=== PATIENT | female | born 1930 | race Caucasian/White ===

== ENCOUNTER 2019-04-24 19:37 | Emergency (ER) | payer MEDICARE, MEDICAID ==
[~2019-04-24] VITALS: Ht 160 cm; Wt 70.3 kg
[~2019-04-24 19:37] MED LIST: ADULT LOW DOSE81 MG PO; ASPIRIN325 PO; BENAZEPRIL HCL10 MG PO; CARDIZEM30 MG PO; COUMADIN 5 MG TA5 M1 PO; ELIQUIS5 MG; ENOXAPARIN100 MG/11 SUBQ; KLOR-CON 1010 MEQ; KLOR-CON 1010 MEQ PO; LASIX 20 MG TAB20 MG; LASIX 20 MG TAB20 MG PO; PAXIL10 MG; ULTRAM 50MG TAB50 MG; VICODIN 5-3001 EACH PO
[2019-04-24] MEDS ORDERED: FOSAMAX 70 MG T70 MG (19:53)
[2019-04-24] MEDS ORDERED: KEFLEX500 M1 PO (21:20)
[2019-04-24 21:51] VITALS: BP 122/70
== END 2019-04-24 21:51 | disposition home or self-care (01) ==
LOC: M.ERS 19:37
DX: S40.862A Insect bite (nonvenomous) of left upper arm, initial encounter (principal); I11.0 Hypertensive heart disease with heart failure; I50.9 Heart failure, unspecified; Z90.710 Acquired absence of both cervix and uterus; Z90.49 Acquired absence of other specified parts of digestive tract; Z91.041 Radiographic dye allergy status; W57.XXXA Bitten or stung by nonvenomous insect and other nonvenomous arthropods, initial encounter; Y93.89 Activity, other specified; Y92.89 Other specified places as the place of occurrence of the external cause; Y99.8 Other external cause status

== ENCOUNTER 2019-07-24 16:56 | Inpatient (IN) | payer MEDICARE, MEDICAID ==
[~2019-07-24] VITALS: Ht 162.6 cm; Wt 72.8 kg
[~2019-07-24 16:56] MED LIST changes: -ELIQUIS5 MG; +ELIQUIS5 MG PO; +FOSAMAX 70 MG T70 MG PO; +KEFLEX500 M1 PO; -KLOR-CON 1010 MEQ; -LASIX 20 MG TAB20 MG
[2019-07-24 16:57] VITALS: BP 86/54
[2019-07-24 17:22] LABS: ABSOLUTE BASOPHILS 0.1 thou/uL (0.0-0.2); ABSOLUTE EOSINOPHILS 0.1 thou/uL (0.0-0.7); ABSOLUTE NEUTROPHILS 9.5 thou/uL (1.6-8.1); BASOPHILS 0.7 %; EOSINOPHILS 0.5 %; HEMATOCRIT 41.6 % (37.0-47.0); HEMOGLOBIN 13.4 gm/dL (12.0-15.0); LYMPHOCYTES 21.8 %; MCH 29.2 pg (26.0-34.0); MCHC 32.3 g/dL (28.0-37.0); MCV 90.6 fL (80.0-100.0); MONOCYTES 7.1 %; MPV 8.6 fl. (7.2-11.1); NUCLEATED RBCS 0 /100WBC; PLATELET COUNT* 294 thou/uL (150-400); POLYS 69.9 %; RBC 4.59 mil/uL (4.20-5.00); RDW-CV 15.1 % (10.5-14.5); WBC 13.6 thou/uL (4.0-11.0)
[2019-07-24 17:35] LABS: ANION GAP 11 mmol/L (7-16); BUN 28 mg/dL (7-18); CALCIUM 9.3 mg/dL (8.5-10.1); CHLORIDE 103 mmol/L (98-107); CO2 25 mmol/L (21-32); CREATININE 1.1 mg/dL (0.6-1.3); GLUCOSE 100 mg/dL (70-99); POTASSIUM 3.5 mmol/L (3.5-5.1); SODIUM 139 mmol/L (136-145)
[2019-07-24 17:37] LABS: INR 1.1; PROTIME 11.4 Seconds (9.20-11.50)
[2019-07-24 17:52] LABS: ALBUMIN 3.4 g/dL (3.4-5.0); ALKALINE PHOSPHATASE 157 U/L (46-116); LIPASE 181 U/L (73-393); NT-PRO BRAIN NAT PEPTIDE 2343 pg/mL (<300); SGOT 26 U/L (15-37); SGPT 20 U/L (30-65); TOTAL BILIRUBIN 0.5 mg/dL (<0.1-1.0); TOTAL PROTEIN 7.3 g/dL (6.4-8.2); TROPONIN-I LEVEL <0.06 ng/mL (<0.06)
[2019-07-24 19:05] VITALS: BP 95/60
[2019-07-24 19:25] VITALS: BP 112/71
[2019-07-25] VITALS (8 sets, daily range): BP systolic 77–146; BP diastolic 47–100
--- NOTE | 2019-07-25 12:12 | 2DMMODE ---
[place] [address] 2 D/M-MODE ECHOCARDIOGRAM Name: ALMA TERRY Room: [address] IN [facility]#: [id number] Admission: 07/24/19 Attend Phys: Roberto Tuttle Discharge: Date of : 34 Date of Service: 07/25/19 1212 Report #: [id number] THIS REPORT FOR: //name// APPROVED REPORT Study performed: 07/25/2019 10:38:50 EXAM: Comprehensive 2D, Doppler, and color-flow Echocardiogram Patient Location: In-Patient Room #: 202 Status: routine BSA: 1.73 HR: 72 bpm BP: 126/73 mmHg Rhythm: Atrial Fibrillation Other Information Study Quality: Good Indications Atrial Fibrillation Dyspnea Near syncope 2D Dimensions IVSd: 10.77 (7-11mm) LVOT Diam: 20.79 (18-24mm) LVDd: 42.53 mm PWd: 10.89 (7-11mm) Ascending Ao: 30.95 (22-36mm) LVDs: 29.00 (25-40mm) Aortic Root: 30.66 mm Volumes Left Atrial Volume (Systole) LA ESV Index: 47.00 mL/m2 Aortic Valve AoV Peak Dae.: 1.31 m/s AO Peak Gr.: 6.84 mmHg LVOT Max P.18 mmHg AO Mean Gr.: 3.87 mmHg LVOT Mean P.47 mmHg LVOT Max V: 0.89 m/s AO V2 VTI: 26.43 cm LVOT Mean V: 0.55 m/s DALIA (VTI): 2.22 cm2 LVOT V1 VTI: 17.30 cm Mitral Valve MV Decel. Time: 157.96 [place] [address] 2 D/M-MODE ECHOCARDIOGRAM Name: ALMA TERRY Room: [address]#: [id number] Admission: 07/24/19 Attend Phys: Roberto Tuttle Discharge: Date of : 34 Date of Service: 07/25/19 1212 Report #: [id number] MV PHT: 45.81 ms MVA (PHT): 4.80 cm2 TDI Medial E' Dae.: 0.09 m/s Lateral E' Dae.: 0.14 m/s Pulmonary Valve PV Peak Dae.: 0.98 m/s PV Peak Gr.: 3.85 mmHg Tricuspid Valve RAP Estimate: 5.00 mmHg TR Peak Gr.: 44.86 mmHg RVSP: 49.00 mmHg PA Pressure: 49.00 mmHg Left Ventricle The left ventricle is normal size. There is normal LV segmental wall motion. There is normal left ventricular wall thickness. Left ventricular systolic function is normal. LVEF is 60-65%. This study is not technically sufficient to allow evaluation of the LV diastolic function due to atrial fibrillation. Right Ventricle The right ventricle is normal size. The right ventricular systolic function is normal. Atria Left atrium is severely dilated. Right atrium is severely dilated. Aortic Valve Aortic valve leaflets are moderately thickened. No aortic regurgitation is present. There is no aortic valvular stenosis. Mitral Valve The mitral valve is normal in structure. Trace mitral regurgitation. No evidence of mitral valve stenosis. Tricuspid Valve The tricuspid valve is normal in structure. Mild tricuspid regurgitation. Moderate pulmonary hypertension. The RVSP is 50-55 mmHg. Pulmonic Valve The pulmonary valve is normal in [place] [address] 2 D/M-MODE ECHOCARDIOGRAM Name: ALMA TERRY Room: [address]#: [id number] Admission: 07/24/19 Attend Phys: Roberto Tuttle Discharge: Date of : 34 Date of Service: 07/25/19 1212 Report #: [id number] regurgitation. Great Vessels The aortic root is normal in size. IVC is normal in size and collapses >50% with inspiration. Pericardium There is no pericardial effusion. <Conclusion> The left ventricle is normal size. There is normal left ventricular wall thickness. Left ventricular systolic function is normal. LVEF is 60-65%. This study is not technically sufficient to allow evaluation of the LV diastolic function due to atrial fibrillation. Left atrium is severely dilated. Right atrium is severely dilated. Aortic valve leaflets are moderately thickened. There is no aortic valvular stenosis. Mild tricuspid regurgitation. Moderate pulmonary hypertension. The RVSP is 50-55 mmHg. IVC is normal in size and collapses >50% with inspiration. <ELECTRONICALLY SIGNED> By: Bolivar Matamoros MD, FACC 07/25/191211 11 11 Bolivar Matamoros MD, FACC /INF
--- NOTE | 2019-07-25 14:53 | EKG ---
[place] [address] ELECTROCARDIOGRAM REPORT Name: ALMA TERRY Room: [address] ADM IN [facility].#: [id number] Admission: 07/24/19 Attend Phys: Rachel Cadena Discharge: Date of : 34 Report #: [id number] THIS REPORT FOR: //name// [facility] ED Test Date: 2019-07-24 Test Time: 17:06:06 Pat Name: ALMA HARRISON Department: Room: [facility] Gender: F Assisted Living Director: : 1930 Requested By: Sebastien Lennon Order Number: [id number] MD: Bolivar Matamoros Measurements Intervals [place] Rate: 72 P: [place]: QRS: 6 QRSD: 87 T: 20 QT: 382 QTc: 419 Interpretive Statements Atrial fibrillation Low voltage, precordial leads Borderline T abnormalities, inferior leads Compared to ECG 08/06/2014 10:06:39 Low QRS voltage now present T-wave abnormality now present ST (T wave) deviation no longer present Electronically Signed On 07-25-2019 14:53:33 CDT by Bolivar Matamoros [email or web address] <ELECTRONICALLY SIGNED> By: Bolivar Matamoros MD, FACC 07/25/19 1453 1706 1706 Bolivar Matamoros MD, FACC /EPI
[2019-07-26 04:37] VITALS: BP 103/52
[2019-07-26 04:56] LABS: ABSOLUTE EOSINOPHILS 0.1 thou/uL (0.0-0.7); ABSOLUTE LYMPHOCYTES 2.5 thou/uL (0.8-5.3); ABSOLUTE MONOCYTES 1.1 thou/uL (0.0-1.2); ABSOLUTE NEUTROPHILS 6.2 thou/uL (1.6-8.1); BASOPHILS 0.4 %; EOSINOPHILS 0.9 %; MCH 29.4 pg (26.0-34.0); MCHC 32.1 g/dL (28.0-37.0); MCV 91.8 fL (80.0-100.0); MONOCYTES 10.8 %; MPV 8.1 fl. (7.2-11.1); NUCLEATED RBCS 0 /100WBC; PLATELET COUNT* 225 thou/uL (150-400); POLYS 62.9 %; RBC 3.71 mil/uL (4.20-5.00); RDW-CV 15.1 % (10.5-14.5); WBC 9.8 thou/uL (4.0-11.0)
[2019-07-26 05:04] LABS: HEMOGLOBIN 10.9 gm/dL (12.0-15.0)
[2019-07-26 05:34] LABS: CALCIUM 7.7 mg/dL (8.5-10.1); CREATININE 0.7 mg/dL (0.6-1.3); POTASSIUM 3.5 mmol/L (3.5-5.1)
[2019-07-26 08:00] VITALS: BP 109/64
[2019-07-26 11:47] VITALS: BP 109/64
[2019-07-26 12:00] VITALS: BP 97/67
[2019-07-26] MEDS ORDERED: AZITHROMYCIN 2250 MG PO (12:52)
[2019-07-26 13:03] VITALS: BP 109/64
== END 2019-07-26 15:30 | disposition home health service (06) | DRG 314 ==
LOC: M.ERS 16:56 → M.TBA-ER 18:05 → M.2W 18:05
PROVIDERS: Emergency Medicine; Family Medicine; ADMIT Internal Medicine
DX: I95.9 Hypotension, unspecified (principal); J18.1 Lobar pneumonia, unspecified organism; I48.2 Chronic atrial fibrillation; R74.8 Abnormal levels of other serum enzymes; I27.20 Pulmonary hypertension, unspecified; E86.0 Dehydration; K57.90 Diverticulosis of intestine, part unspecified, without perforation or abscess without bleeding; I11.0 Hypertensive heart disease with heart failure; I50.9 Heart failure, unspecified; Z90.49 Acquired absence of other specified parts of digestive tract; Z90.710 Acquired absence of both cervix and uterus; Z91.041 Radiographic dye allergy status; Z79.82 Long term (current) use of aspirin; Z79.899 Other long term (current) drug therapy

== ENCOUNTER 2020-01-27 07:54 | Inpatient (IN) | payer MEDICAID, MEDICARE ==
[~2020-01-27] VITALS: Ht 160 cm; Wt 65.8 kg
[~2020-01-27 07:54] MED LIST changes: +AZITHROMYCIN 2250 MG PO
[2020-01-27 07:55] VITALS: BP 141/91
[2020-01-27 08:22] LABS: ABSOLUTE EOSINOPHILS 0.1 thou/uL (0.0-0.7); ABSOLUTE LYMPHOCYTES 2.3 thou/uL (0.8-5.3); ABSOLUTE MONOCYTES 0.9 thou/uL (0.0-1.2); BASOPHILS 0.3 %; EOSINOPHILS 0.6 %; HEMOGLOBIN 10.5 gm/dL (12.0-15.0); LYMPHOCYTES 24.7 %; MCH 23.6 pg (26.0-34.0); MCHC 30.9 g/dL (28.0-37.0); MCV 76.5 fL (80.0-100.0); MPV 7.3 fl. (7.2-11.1); NUCLEATED RBCS 0 /100WBC; PLATELET COUNT* 332 thou/uL (150-400); POLYS 64.4 %; RBC 4.44 mil/uL (4.20-5.00); RDW-CV 20.6 % (10.5-14.5); WBC 9.3 thou/uL (4.0-11.0)
[2020-01-27 08:27] LABS: CALCIUM 8.4 mg/dL (8.5-10.1); CREATININE 0.6 mg/dL (0.6-1.3); POTASSIUM 3.7 mmol/L (3.5-5.1)
[2020-01-27 08:29] LABS: APTT 24.9 Seconds (25.0-31.3); PROTIME 10.6 Seconds (9.20-11.50)
[2020-01-27 08:38] LABS: TOTAL BILIRUBIN 0.4 mg/dL (<0.1-1.0); TOTAL PROTEIN 7.1 g/dL (6.4-8.2)
[2020-01-27 15:45] VITALS: BP 151/62
[2020-01-27 17:15] VITALS: BP 120/61
--- NOTE | 2020-01-27 17:47 | NUR ---
PT A&OX3 VSS. PT REPORTS USING WALKER AT HOME FOR MOBILITY. IV TO RAC PATENT, SALINE LOCKED. ANTIBIOTIC TX ORDERED. PT INCONTINENT OF BLADDER PRIOR TO ARRIVAL ON UNIT. PT ORIENTED TO CALL LIGHT AND REMINDED TO USE CALL LIGHT FOR ASSISTANCE. PT HAS HOME MEDICATIONS IN BAG. MED REC CONFIRMED WITH PT AT BEDSIDE AND MEDICATIONS INVENTORIED AND SECURED IN PHARMACY. PT AWARE. LIDOCAINE PATCH TO R KNEE FOR PAIN RELIEF. PT RESTS IN BED WITH CALL LIGHT IN REACH. WILL CONTINUE TO MONITOR.
[2020-01-27 19:10] VITALS: BP 100/73
--- NOTE | 2020-01-28 06:37 | NUR ---
PT ALERT AND ORIENTED. VSS ON RA. MEDS GIVEN PER EMAR. PAIN MEDS GIVEN THIS SHIFT. PT INCONTINENT OF BLADDER. NO BM NOTED THIS SHIFT. PT NOT MOVING AROUND MUCH IN BED. Q2 TURN. FALL PRECAUTION IN PLACE. NO AMBULATION NOTED THIS SHIFT. PT ENCOURAGED TO GET OUT OF BED TODAY. YEAST-LIKE INFECTION TO ABD FOLDS. CALL LIGHT WITHIN REACH. HOURLY RONUDINGS MADE. WILL CONTINUE TO MONITOR.
[2020-01-28 08:15] VITALS: BP 101/42
[2020-01-28 09:36] LABS: BF RBC 285013 /mm3; CLARITY TURBID; TOTAL CELL COUNT 16523 /mm3; TOTAL VOLUME <1 ml
[2020-01-28 09:38] LABS: SOURCE SYNOVIAL
[2020-01-28 09:55] LABS: BF LYMPHOCYTES 4 %; BF POLYS 96 %; BF TISSUE 9 /100 WBC
--- NOTE | 2020-01-28 10:06 | NUR ---
PAGED ORTHO TO CLARIFY ORDER/TEST FOR LAB. AWAITING CALL.
--- NOTE | 2020-01-28 17:21 | NUR ---
Remains A&OX4. Respirations even and unlabored on room air. Denies pain. Right knee edematous. BENJAMIN wrap intact. Lidoderm patch intact to right knee. Refused immobilizer when attempting to get out of bed. Continues on IV atbx without s/sx of adverse reactions. PT/OT to assess. Incont of B&B. Bed alarm remains set on exiting mode for safety. Call beckford within reach. Nsg will continue to assess.
[2020-01-28 19:30] VITALS: BP 126/64
[2020-01-29 04:40] LABS: HEMATOCRIT 28.2 % (37.0-47.0); HEMOGLOBIN 9.1 gm/dL (12.0-15.0); MCH 24.3 pg (26.0-34.0); MCHC 32.1 g/dL (28.0-37.0); MCV 75.9 fL (80.0-100.0); MPV 7.7 fl. (7.2-11.1); RBC 3.72 mil/uL (4.20-5.00); RDW-CV 20.5 % (10.5-14.5); WBC 8.8 thou/uL (4.0-11.0)
--- NOTE | 2020-01-29 05:02 | NUR ---
PT ALERT AND ORIENTED. VSS ON RA. MEDS GIVEN PER EMAR. PT VOICED SLEEPING WELL THIS SHIFT. TYLENOL GIVEN FOR PAIN. NEW IV TO LH. INCONTINENT OF BLADDER. NO BM THIS SHIFT. Q2 TURN. NYSTATIN POWDER TO ABD FOLDS. FALL PRECAUTIONS IN PLACE. CALL LIGHT WITHIN REACH. HOURLY ROUNDINGS MADE. WILL CONTINUE TO MONITOR.
[2020-01-29 05:26] LABS: ALBUMIN 2.2 g/dL (3.4-5.0); CALCIUM 7.6 mg/dL (8.5-10.1); CREATININE 0.9 mg/dL (0.6-1.3); MAGNESIUM 1.9 mg/dL (1.8-2.4); POTASSIUM 3.7 mmol/L (3.5-5.1); TOTAL BILIRUBIN 0.5 mg/dL (<0.1-1.0); TOTAL PROTEIN 5.7 g/dL (6.4-8.2)
--- NOTE | 2020-01-29 11:42 | EKG ---
[place] [address] ELECTROCARDIOGRAM REPORT Name: HARRISONALMA Room: [address] ADM IN [facility]#: [id number] Admission: 01/27/20 Attend Phys: Harmony Agustin, Discharge: Date of : 34 Date of Service: 01/27/20 0849 Report #: [id number] THIS REPORT FOR: //name// ED Test Date: 2020-01-27 Test Time: 08:49:46 Pat Name: ALMA TERRY Department: Room: [facility] Gender: F Doughnut Icer: CCD : 1930 Requested By: Jose De Jesus Tuttle Order Number: [id number] MD: Prasanna Dailey Measurements Intervals [place] Rate: 83 P: VT: QRS: 10 QRSD: 80 T: 33 QT: 377 QTc: 443 Interpretive Statements Atrial fibrillation Low voltage, precordial leads Compared to ECG 07/24/2019 17:06:06 no change Electronically Signed On 01-29-2020 11:41:41 CDT by Prasanna Dailey [email or web address] <ELECTRONICALLY SIGNED> By: Prasanna Dailey MD, [facility] 01/29/20 1141 0849 0849 Prasanna Dailey MD, [facility] /EPI
--- NOTE | 2020-01-29 14:59 | NUR ---
ORDER RECEIVED FOR "OT EVALUATION AND TREATMENT". PLAN TO DEFER TO PHYSICAL THERAPY AT THIS TIME.
[2020-01-29 16:00] VITALS: BP 109/67
--- NOTE | 2020-01-29 16:10 | NUR ---
CM SPOKE TO THE PATIENT TO DISCUSS HER HOME SITUATION, AND DISCHARGE PLANNING NEEDS. PT INFORMS THAT SHE RESIDES AT HOME ALONE. PT USES A WALKER FOR MOBILITY IN HER HOME, BUT ALSO OWNS A W/C AND A POWERCHAIR THAT SHE USES OUTSIDE THE HOME. PATIENT INFORMS THAT SHE HAS IN-HOME CARGIVERS WITH [facility] AND THEY ASSIST WITH BATHING, DRESSING, COOKING, CLEANING, LAUNDRY, AND GROCERY SHOPPING 2 DAYS WK/3.5 HRS DAY. PT INFORMS THAT SHE DOES NOT ANTICIPATE ANY DISCHARGE PLANNING NEEDS AT D/C. CM WILL REMAIN AVAILABLE TO ASSIST AND FOLLOW NEEDED.
[2020-01-29 21:30] VITALS: BP 133/59
--- NOTE | 2020-01-30 05:34 | NUR ---
PATIENT SLEPT WELL DURING THIS SHIFT. PT IS INCONTINENT OF BOWEL AND BLADDER. PT WITH SALINE LOCK IN LT HAND. REDNESS IN ABNER AREA; NYSTATIN USED. RT KNEE WRAPPED WITH BENJAMIN WRAP. VOLTARIN GEL ON RT KNEE. PT DENIES NEEDS AT THIS TIME. FREQUENTLY USED ITEMS AND CALL LIGHT WITHIN REACH. SIDERAILS UPX3 AND BED ALARM ON. WILL CONTINUE TO MONITOR.
[2020-01-30 08:34] VITALS: BP 131/61
[2020-01-30 16:00] VITALS: BP 122/51
[2020-01-30 20:00] VITALS: BP 140/49
--- NOTE | 2020-01-31 00:31 | NUR ---
INITAL ASSESMENT COMPLETED AT 1999. PT PLEASANT AND COOPERATIVE, DENIED PAIN AT THAT TIME. PT INCONTINENT OF URINE, PURWICK EXTERNAL CATHETER PLACED. HS MEDS GIVEN PER EMAR. CALL LIGHT IN REACH, PT DEMONSTRATES PROPER USE.
[2020-01-31 08:15] VITALS: BP 148/61
--- NOTE | 2020-01-31 14:56 | NUR ---
ETHAN spoke with Dr Agustin and with Daiana, rehabilitation tech, about pt dc plan for [facility] and pt has been accepted to inpt rehab but is pending insurance authorization and bed available. Bed anticipated to be available Wednesday. OT to be reordered to continue therapies towards dc plan of inpt rehab. SW to continue to follow to assist with finalizing safe dc plan.
[2020-01-31 18:10] LABS: URINE BILIRUBIN NEGATIVE (Negative); URINE BLOOD NEGATIVE (Negative); URINE CLARITY CLEAR; URINE COLOR STRAW; URINE GLUCOSE-RANDOM NEGATIVE (Negative); URINE KETONES NEGATIVE (Negative); URINE NITRITE-REFLEX NEGATIVE (Negative); URINE PROTEIN NEGATIVE (Negative); URINE SPECIFIC GRAVITY 1.015 (1.005-1.030); URINE UROBILINOGEN 0.2 E.U./dl (0.2-1.0)
[2020-01-31 18:13] LABS: URINE LEUKOCYTES-REFLEX 2+ (Negative)
[2020-01-31 18:20] LABS: MUCUS None Seen strn/LPF (None Seen); SQUAMOUS >10 Many /LPF (0-3)
[2020-01-31 18:21] LABS: BACTERIA-REFLEX >30 Many /HPF (None Seen); CALCIUM OXALATE 4-10 Moderate /LPF (None Seen); CASTS None Seen /LPF (None Seen); URINE WBC-REFLEX >25 Many /HPF (0-5)
--- NOTE | 2020-01-31 18:21 | NUR ---
REMAINS A&OX4. RESPIRATIONS EVEN AND UNLABORED ON ROOM AIR. DENIES PAIN. UP WITH THERAPY WITH IMMOBILIZER TO RT LEG AND WALKER. PERWICK INTACT AND DRAINING CLEAR YELLOW URINE. UA SENT TO LAB. BED ALARM REMAINS SET ON EXITING MODE FOR SAFETY. CALL [facility] WITHIN REACH. NSG WILL CONTINUE TO ASSESS.
[2020-01-31 18:22] LABS: URINE RBC None Seen /HPF (0-2)
[2020-01-31 21:00] VITALS: BP 143/67
--- NOTE | 2020-01-31 23:12 | NUR ---
INITAL ASSESMENT COMLETED AT 2100. PT GIVEN HS MEDS PER EMAR AT THAT TIME. PT GIVEN PRN TYLENIL FOR PAIN IN RIGHT KNEE. PT REPORTS THAT TRAMADOL MAKES HER CONFUSED AND SHE FELL OUT OF BED AT HOME AFTER TAKING TRAMADOL. PURWICK CATHETER REMAINS IN PLACE. CALL LIGHT IN REACH, PT USING PROPERLY.
[2020-02-01 08:00] VITALS: BP 139/52
--- NOTE | 2020-02-01 18:54 | NUR ---
ASSESSMENT COMPLETED DOCUMENTED THIS MORNING. PATIENT HAS BEEN UP IN THE CHAIR FOR MOST ALL OF THE DAY. PHYSICAL THERAPY ASSESSED PATIENT AND AMBULATED IN THE ROOM. CASE MGMT ORDERED TO ASSIST WITH SNF PLACEMENT.
[2020-02-01 20:00] VITALS: BP 146/67
[2020-02-02 04:33] LABS: HEMATOCRIT 29.7 % (37.0-47.0); HEMOGLOBIN 9.3 gm/dL (12.0-15.0); MCHC 31.3 g/dL (28.0-37.0); MCV 76.8 fL (80.0-100.0); MPV 7.3 fl. (7.2-11.1); RBC 3.87 mil/uL (4.20-5.00); RDW-CV 20.7 % (10.5-14.5); WBC 7.1 thou/uL (4.0-11.0)
[2020-02-02 04:59] LABS: ALBUMIN 2.3 g/dL (3.4-5.0); CALCIUM 8.2 mg/dL (8.5-10.1); CREATININE 0.8 mg/dL (0.6-1.3); MAGNESIUM 1.7 mg/dL (1.8-2.4); PHOSPHORUS* 3.9 mg/dL (2.5-4.9); POTASSIUM 3.7 mmol/L (3.5-5.1)
[2020-02-02 08:00] VITALS: BP 143/60
--- NOTE | 2020-02-02 12:51 | NUR ---
Nutrition: Pt seen for LOS. She stated the food is really good and she has a good appetite. Her knees hurt when she walks, but she is feeling proud of herself for walking at times. Wt: 145#. Alb 2.3, prealb 9. Regular diet. H/o HTN, afib, OA. She does follow a low Na diet at home. No nutrition concerns at this time. Low risk.
[2020-02-02] MEDS ORDERED: NYAMYC15 GM TOP (14:19)
[2020-02-02] MEDS ORDERED: MACROBID 100 M100 M1 PO (14:21)
[2020-02-02] MEDS ORDERED: TYLENOL325 MG PO (14:24)
[2020-02-02] MEDS ORDERED: LIDOPATCH1 EACH TOP (14:24)
[2020-02-02] MEDS ORDERED: VOLTAREN GEL 1100 G1 TOP (14:24)
[2020-02-02] MEDS ORDERED: TRAMADOL 50 MG50 MG PO (14:24)
[2020-02-02 14:25] VITALS: BP 143/60
--- NOTE | 2020-02-02 16:32 | NUR ---
PT UP IN CHAIR MOST OF SHIFT. PAIN CONTROLLED WITH TYLENOL. PT PARTICIPATES IN THERAPY. TOLERATING PO WELL. PLAN TO TRANSFER TO REHAB THIS EVENING
--- NOTE | 2020-02-02 18:29 | NUR ---
REPORT CALLED TO KELLY ON REHAB UNIT. PT TRANSFERRED TO REHAB VIA
== END 2020-02-02 19:01 | DRG 553 ==
LOC: M.ERS 07:54 → M.TBA-ER 10:44 → M.3W 10:44
PROVIDERS: Family Medicine; Orthopaedic Surgery; ADMIT Internal Medicine
PROC: 2W3LX1Z Immobilization of Right Lower Extremity using Splint (ICD-10-PCS; principal; 2020-01-27)
PROC: 0S9C3ZZ Drainage of Right Knee Joint, Percutaneous Approach (ICD-10-PCS; 2020-01-28)
DX: M17.11 Unilateral primary osteoarthritis, right knee (principal); I50.33 Acute on chronic diastolic (congestive) heart failure; E44.1 Mild protein-calorie malnutrition; Z68.45 Body mass index [BMI] 70 or greater, adult; K57.90 Diverticulosis of intestine, part unspecified, without perforation or abscess without bleeding; I11.0 Hypertensive heart disease with heart failure; I48.91 Unspecified atrial fibrillation; Z91.041 Radiographic dye allergy status; Z90.710 Acquired absence of both cervix and uterus; Z90.49 Acquired absence of other specified parts of digestive tract; Z79.82 Long term (current) use of aspirin; Z79.899 Other long term (current) drug therapy

== ENCOUNTER 2020-02-02 15:46 | Inpatient (IN) | payer MEDICAID, MEDICARE ==
[~2020-02-02] VITALS: Ht 160 cm; Wt 71.2 kg
--- NOTE | ~2020-02-02 | CON ---
[address] [address] CONSULTATION Name: ALMA TERRY Room: [address] IN [facility]#: [id number] Admission: 02/02/20 Attend Phys: Piyush Hawkins MD Discharge: Date of : 34 Report #: [id number] THIS REPORT FOR: //name// cc: Adam Matamoros Karl ~ THIS REPORT FOR: //name// CC: Adam Hawkins DATE OF SERVICE: 02/11/2020 HISTORY OF PRESENT ILLNESS: This is an 89-year-old female who had initially presented to [facility] in 01/27/2020 with right knee pain and swelling. This was found to be a flare up of her arthritis. She currently is in rehabilitation, but has had some emesis and they may have noted coffee-ground in her emesis. She had a bowel movement this morning, which was negative for hematochezia or melena. The patient reports that she feels bloated, which is a little unusual for her. She also has nausea. She reports that she would like to vomit, but she cannot. PAST MEDICAL HISTORY: Significant for history of AFib, hypertension, heart failure, severe osteoarthritis, hysterectomy, appendectomy, gallbladder disease, status post cholecystectomy, hernia repair, and diverticulosis. ALLERGIES: SIGNIFICANT TO IODINE. MEDICATIONS: Please refer to MAR. SOCIAL HISTORY: The patient denies tobacco or alcohol use. She has severe osteoarthritis. FAMILY HISTORY: Noncontributory. PHYSICAL EXAMINATION: VITAL SIGNS: Reveals blood pressure of 121/62, respirations 16, pulse 102, temperature 97.7. LUNGS: Clear. CARDIOVASCULAR: Regular. ABDOMEN: Soft, mildly tender to palpation in the epigastric region. Bowel sounds are positive. NEUROLOGIC: The patient is alert and oriented x 3. LABORATORY DATA: Reveal sodium of 139, potassium 4.1, BUN is 55, creatinine 0.8, glucose 103, AST is 13, ALT 15, alkaline phosphatase 94, [place] [address] CONSULTATION Name: ALMA TERRY Room: [address] IN [facility]#: [id number] Admission: 02/02/20 Attend Phys: Piyush Hawkins MD Discharge: Date of : 32 Report #: [id number]. WBC is 7.7, hemoglobin is 8.2, it was 10.5 on 01/26. ASSESSMENT AND PLAN: The patient with coffee-ground emesis, but brown stool, who also has elevated BUN and creatinine ratio of more than 60. She feels that her abdomen is distended and has nausea. I will order a KUB to ensure that she does not have ileus. I will also monitor her CBC and if her hemoglobin drops, we will transfuse hemoglobin to above 7.5. I will consider putting her on Protonix 40 mg p.o. b.i.d. and reevaluate her tomorrow. If the patient had persistent nausea, vomiting or hematemesis, we will consider upper scope. By: 1325 1405Phong Del Rio MD /nt
[~2020-02-02 15:46] MED LIST changes: +LIDOPATCH1 EACH TOP; +MACROBID 100 M100 M1 PO; +NYAMYC15 GM TOP; +TRAMADOL 50 MG50 MG PO; +TYLENOL325 MG PO; +VOLTAREN GEL 1100 G1 TOP
[2020-02-02 18:55] VITALS: BP 105/47
[2020-02-03 04:15] LABS: HEMOGLOBIN 8.9 gm/dL (12.0-15.0); MCH 24.1 pg (26.0-34.0); MCHC 31.8 g/dL (28.0-37.0); MCV 75.8 fL (80.0-100.0); MPV 7.4 fl. (7.2-11.1); RBC 3.7 mil/uL (4.20-5.00); RDW-CV 20.3 % (10.5-14.5); WBC 10.7 thou/uL (4.0-11.0)
[2020-02-03 04:32] LABS: CALCIUM 8.1 mg/dL (8.5-10.1); CREATININE 0.7 mg/dL (0.6-1.3); POTASSIUM 3.7 mmol/L (3.5-5.1)
[2020-02-03 14:25] LABS: URINE BILIRUBIN NEGATIVE (Negative); URINE BLOOD 3+ (Negative); URINE COLOR YELLOW; URINE GLUCOSE-RANDOM NEGATIVE (Negative); URINE KETONES NEGATIVE (Negative); URINE NITRITE-REFLEX NEGATIVE (Negative); URINE PROTEIN NEGATIVE (Negative); URINE SPECIFIC GRAVITY 1.015 (1.005-1.030); URINE UROBILINOGEN 0.2 E.U./dl (0.2-1.0)
[2020-02-03 14:26] LABS: URINE CLARITY HAZY; URINE LEUKOCYTES-REFLEX 2+ (Negative)
[2020-02-03 14:34] LABS: BACTERIA-REFLEX >30 Many /HPF (None Seen); SQUAMOUS 0-3 Few /LPF (0-3); URINE RBC 3-10 Few /HPF (0-2); URINE WBC-REFLEX >25 Many /HPF (0-5)
[2020-02-03 14:35] LABS: CASTS None Seen /LPF (None Seen); CRYSTALS None Seen /LPF (None Seen)
[2020-02-03 20:00] VITALS: BP 131/52
[2020-02-03 20:30] VITALS: BP 132/60
[2020-02-04 08:40] VITALS: BP 120/76
[2020-02-04 20:16] VITALS: BP 141/64
[2020-02-05 07:58] VITALS: BP 126/74
[2020-02-05 19:30] VITALS: BP 138/57
[2020-02-06 10:22] VITALS: BP 168/80
[2020-02-06 19:10] VITALS: BP 158/59
[2020-02-07 08:22] VITALS: BP 110/68
[2020-02-07 20:04] VITALS: BP 147/75
[2020-02-08 08:00] VITALS: BP 140/78
[2020-02-08 20:00] VITALS: BP 125/47; BP 133/67
[2020-02-09 08:29] VITALS: BP 122/59
[2020-02-09 19:30] VITALS: BP 130/68
[2020-02-10 07:59] VITALS: BP 109/57
[2020-02-10 19:58] VITALS: BP 126/67
[2020-02-10 23:17] VITALS: BP 107/59
[2020-02-11 05:09] LABS: HEMATOCRIT 25.9 % (37.0-47.0); HEMOGLOBIN 8.2 gm/dL (12.0-15.0); MCHC 31.7 g/dL (28.0-37.0); MCV 75.8 fL (80.0-100.0); MPV 7.1 fl. (7.2-11.1); RBC 3.41 mil/uL (4.20-5.00); RDW-CV 20.2 % (10.5-14.5); WBC 7.7 thou/uL (4.0-11.0)
[2020-02-11 05:25] LABS: ALBUMIN 2.4 g/dL (3.4-5.0); CALCIUM 7.9 mg/dL (8.5-10.1); CREATININE 0.8 mg/dL (0.6-1.3); POTASSIUM 4.1 mmol/L (3.5-5.1); TOTAL BILIRUBIN 0.4 mg/dL (<0.1-1.0); TOTAL PROTEIN 5.5 g/dL (6.4-8.2)
[2020-02-11 07:30] VITALS: BP 121/62
[2020-02-11 19:54] VITALS: BP 124/54
[2020-02-12 04:05] LABS: ABSOLUTE LYMPHOCYTES 1.2 thou/uL (0.8-5.3); ABSOLUTE MONOCYTES 0.1 thou/uL (0.0-1.2); ABSOLUTE NEUTROPHILS 2.6 thou/uL (1.6-8.1); BASOPHILS 0.2 %; HEMATOCRIT 25.6 % (37.0-47.0); HEMOGLOBIN 8.1 gm/dL (12.0-15.0); LYMPHOCYTES 31.1 %; MCHC 31.5 g/dL (28.0-37.0); MCV 76.3 fL (80.0-100.0); MONOCYTES 2.2 %; MPV 7.1 fl. (7.2-11.1); NUCLEATED RBCS 0 /100WBC; PLATELET COUNT* 416 thou/uL (150-400); POLYS 66.5 %; RBC 3.36 mil/uL (4.20-5.00); RDW-CV 20.2 % (10.5-14.5); WBC 3.9 thou/uL (4.0-11.0)
[2020-02-12 06:06] LABS: OVALOCYTES 1+; POLYCHROMASIA 1+
[2020-02-12 06:07] LABS: HYPOCHROMASIA 1+; PLATELET ESTIMATE ADEQUATE
[2020-02-12 07:51] VITALS: BP 100/60
[2020-02-12 20:00] VITALS: BP 135/70
[2020-02-13 07:30] VITALS: BP 144/76
[2020-02-13 08:12] VITALS: BP 144/76
[2020-02-13 08:17] LABS: HEMATOCRIT 27.8 % (37.0-47.0); HEMOGLOBIN 8.6 gm/dL (12.0-15.0); MCH 23.9 pg (26.0-34.0); MCHC 31.1 g/dL (28.0-37.0); MCV 76.9 fL (80.0-100.0); RBC 3.61 mil/uL (4.20-5.00); RDW-CV 20.7 % (10.5-14.5); WBC 7.5 thou/uL (4.0-11.0)
[2020-02-13 08:25] LABS: CALCIUM 8.4 mg/dL (8.5-10.1); CREATININE 0.7 mg/dL (0.6-1.3); MAGNESIUM 2.1 mg/dL (1.8-2.4); PHOSPHORUS* 3.9 mg/dL (2.5-4.9); POTASSIUM 3.8 mmol/L (3.5-5.1)
[2020-02-13] MEDS ORDERED: AMBIEN5 MG PO (17:08)
[2020-02-13] MEDS ORDERED: LORAZEPAM 22 MG/1 ML IV PUSH (17:10)
[2020-02-13] MEDS ORDERED: BISACODYL10 MG RECTAL (17:11)
[2020-02-13] MEDS ORDERED: CARDIZEM SR 60M60 MG PO (17:12)
[2020-02-13] MEDS ORDERED: CEFAZOLIN1 GM/50 M1 IV (17:14)
[2020-02-13] MEDS ORDERED: COLACE100 MG PO (17:15)
[2020-02-13] MEDS ORDERED: ELIQUIS5 MG PO (17:16)
[2020-02-13] MEDS ORDERED: FLEET ENEMA133 ML RECTAL (17:18)
[2020-02-13] MEDS ORDERED: FUROSEMIDE 40 M40 MG PO (17:19)
[2020-02-13] MEDS ORDERED: POTASSIUM20 PO (17:19)
[2020-02-13] MEDS ORDERED: LIDODERM1 EACH TOP (17:20)
[2020-02-13] MEDS ORDERED: LORAZEPAM 0.50.5 MG PO (17:22)
[2020-02-13] MEDS ORDERED: MILK OF MA2400 MG/11 PO (17:23)
[2020-02-13] MEDS ORDERED: NYAMYC15 GM TOP (17:26)
[2020-02-13] MEDS ORDERED: PROTONIX40 M1 PO (17:37)
[2020-02-13] MEDS ORDERED: TYLENOL325 M1 PO (17:40)
[2020-02-13] MEDS ORDERED: ULTRAM50 MG PO (17:42)
[2020-02-13] MEDS ORDERED: VOLTAREN GEL 1100 G1 TOP (17:44)
[2020-02-13] MEDS ORDERED: ZOFRAN 4 MG ORAL4 MG SUBLING (17:45)
== END 2020-02-13 15:58 | disposition short-term general hospital (02) | DRG 564 ==
LOC: M.REH 15:46
PROVIDERS: Internal Medicine; Internal Medicine Gastroenterology; Surgery; ADMIT Physical Medicine & Rehabilitation
DX: M25.461 Effusion, right knee (principal); I50.33 Acute on chronic diastolic (congestive) heart failure; L03.115 Cellulitis of right lower limb; N39.0 Urinary tract infection, site not specified; R53.81 Other malaise; Z88.6 Allergy status to analgesic agent; I48.91 Unspecified atrial fibrillation; I11.0 Hypertensive heart disease with heart failure; M19.90 Unspecified osteoarthritis, unspecified site; Z90.710 Acquired absence of both cervix and uterus; Z90.49 Acquired absence of other specified parts of digestive tract

== ENCOUNTER 2020-02-13 16:06 | Inpatient (IN) | payer MEDICAID, MEDICARE ==
[~2020-02-13] VITALS: Ht 162.6 cm; Wt 65.3 kg
--- NOTE | ~2020-02-13 | OP ---
[address] [address] OPERATIVE REPORT Name: ALMA TERRY Room: [address] IN [facility].#: [id number] Admission: 02/13/20 Attend Phys: Francesca Metcalf Discharge: Date of : 34 Report #: [id number] THIS REPORT FOR: //name// cc: Adam Matamoros Karl ~ THIS REPORT FOR: //name// CC: Francesca Agosto DICTATED BY: Forrest Aceves DO DATE OF SERVICE: 02/14/2020 PREPROCEDURE DIAGNOSIS: Ventral hernia. POSTPROCEDURE DIAGNOSIS: Ventral hernia. SURGEON: Jam Ward DO VALET: Forrest Aceves, PGY4 OPERATION PERFORMED: Exploratory laparotomy and release of small bowel obstruction, lysis of adhesions for 30 minutes and repair of incisional hernia with mesh. ANESTHESIA: General as well as the transversus abdominis plane block. ESTIMATED BLOOD LOSS: 30 mL. SPECIMEN: Hernia sac. COMPLICATIONS: None. DRAIN: A 15-Syrian LUIS and implant was a Ventralight ST 10 x 15 cm oval mesh. INDICATIONS: The patient is an 89-year-old female. General Surgery was asked to see after she was found to have a midline incisional hernia. She had been on the rehabilitation floor for knee pain. She had developed some nausea and vomiting. Initially, she was managed nonoperatively; however, after discussion with the patient and her family, they decided to proceed with operative repair of the hernia and release of the partial small bowel obstruction. She was informed of all risks and benefits of the operation and decided [place] [address] OPERATIVE REPORT Name: LESAKATRINALMA CARRERA Room: [address] IN ..#: [id number] Admission: 02/13/20 Attend Phys: Francesca Metcalf Discharge: Date of : 32 Report #: [id number] DESCRIPTION OF PROCEDURE: After informed consent was obtained, the patient was brought to the operating room and placed in the supine position. SCDs were on and running. Preoperative antibiotics were delivered. The patient was induced with general anesthesia, intubated without difficulty. A Aggarwal was placed. The patient was prepped and draped in the usual sterile fashion. A surgical pause was held to confirm proper patient and procedure. A #10 blade was used to make a vertical incision extending from the previous infraumbilical incision superior to the umbilicus by 2 cm. Dissection was carried through the subcutaneous tissue using cautery until the hernia sac was identified. This was then circumferentially dissected free from subcutaneous tissue. The fascia superior to the defect was opened using cautery. The peritoneum was entered. There were dense adhesions with the small bowel within the hernia sac and the inferior portion of the incision, which is why the entry through the superior portion of the incision was utilized. Dissection was carefully carried in an inferior fashion, taking down the adhesions with a combination of Metzenbaum scissors and cautery with care to preserve the integrity of the bowel. Lysis of adhesions was performed for about 30 minutes. The small bowel obstruction was released. There was a clear transition point with proximally dilated bowel and distally decompressed bowel. There was also some incarcerated omental fat within the hernia sac, which was amputated and hemostatic. Once the hernia was completely reduced, the sac was amputated using cautery and adhesions to the peritoneum were taken down circumferentially around the hernia defect to allow for adequate placement of the mesh. The subcutaneous fat was then dissected free from the fascia to create adequate space for tacking the mesh circumferentially. The defect was then measured about 13 cm in the craniocaudal dimension and the transverse measurement was 7 cm; therefore, 10 x [address] mesh was selected, hydrated and inserted into the abdomen. 0 Prolene was then used to fix the mesh circumferentially. These sutures were all tied down and the fascia was closed over the mesh in running continuous fashion using 0 Prolene. A 15-Syrian drain was placed in the subcutaneous tissue. The wound was then closed in layered fashion using 3-0 Vicryl and steven for the skin. Wounds were cleansed and dressed with Telfa, 4 x 4s, ABDs and tape. Anesthesia then placed a transversus abdominis plane block. The patient was emerged from anesthesia and transferred to the PACU in stable condition with plans to return to the tele floor. By: 1039 1128Adam Scott Ward DO /nt
[2020-02-13] MEDS ORDERED: AMBIEN5 MG PO (17:08)
[2020-02-13] MEDS ORDERED: LORAZEPAM 22 MG/1 ML IV PUSH (17:10)
[2020-02-13] MEDS ORDERED: BISACODYL10 MG RECTAL (17:11)
[2020-02-13] MEDS ORDERED: CARDIZEM SR 60M60 MG PO (17:12)
[2020-02-13] MEDS ORDERED: CEFAZOLIN1 GM/50 M1 IV (17:14)
[2020-02-13] MEDS ORDERED: COLACE100 MG PO (17:15)
[2020-02-13] MEDS ORDERED: ELIQUIS5 MG PO (17:16)
[2020-02-13] MEDS ORDERED: FLEET ENEMA133 ML RECTAL (17:18)
[2020-02-13] MEDS ORDERED: POTASSIUM20 PO (17:19)
[2020-02-13] MEDS ORDERED: FUROSEMIDE 40 M40 MG PO (17:19)
[2020-02-13] MEDS ORDERED: LIDODERM1 EACH TOP (17:20)
[2020-02-13] MEDS ORDERED: LORAZEPAM 0.50.5 MG PO (17:22)
[2020-02-13] MEDS ORDERED: MILK OF MA2400 MG/11 PO (17:23)
[2020-02-13] MEDS ORDERED: NYAMYC15 GM TOP (17:26)
[2020-02-13] MEDS ORDERED: PROTONIX40 M1 PO (17:37)
[2020-02-13] MEDS ORDERED: TYLENOL325 M1 PO (17:40)
[2020-02-13] MEDS ORDERED: ULTRAM50 MG PO (17:42)
[2020-02-13] MEDS ORDERED: VOLTAREN GEL 1100 G1 TOP (17:44)
[2020-02-13] MEDS ORDERED: ZOFRAN 4 MG ORAL4 MG SUBLING (17:45)
--- NOTE | 2020-02-13 18:48 | NUR ---
REC PATIENT FROM REHAB AROUND 1600, A&OX4, MED SURG STATUS, ROOM AIR, FULL LIQUID DIET, NPO AT MIDNIGHT MESH HERNIA REPAIR 830 AM TOMORROW, UP WITH ONE AND A WALKER, INCONTINENT OF BLADDER, ADMISSION COMPLETE, HOURLY ROUNDING PERFORMED, POSSESSIONS AND CALL LIGHT WITHIN REACH.
[2020-02-13 20:00] VITALS: BP 102/39
[2020-02-14] VITALS: BP 142/67
[2020-02-14 04:27] LABS: HEMOGLOBIN 8.6 gm/dL (12.0-15.0); MCH 23.9 pg (26.0-34.0); MCHC 31.7 g/dL (28.0-37.0); MCV 75.6 fL (80.0-100.0); MPV 7.4 fl. (7.2-11.1); RBC 3.58 mil/uL (4.20-5.00); RDW-CV 20.5 % (10.5-14.5); WBC 7.7 thou/uL (4.0-11.0)
[2020-02-14 04:46] LABS: ALBUMIN 2.9 g/dL (3.4-5.0); CALCIUM 8.3 mg/dL (8.5-10.1); CREATININE 0.8 mg/dL (0.6-1.3); MAGNESIUM 1.8 mg/dL (1.8-2.4); POTASSIUM 3.3 mmol/L (3.5-5.1); TOTAL BILIRUBIN 0.4 mg/dL (<0.1-1.0)
[2020-02-14 06:48] VITALS: BP 142/67
--- NOTE | 2020-02-14 06:57 | NUR ---
ASSUMED PT CARE AT 1930. NURSING ASSESSMENT COMPLETED AT START OF SHIFT. PT WOKE UP ANXIOUS AROUND MIDNIGHT REGARDING SCHEDULED SURGERY. REASSURED PATIENT, ANXIETY MEDICATION ADMINISTERED. PT CONTINUES TO BE ANXIOUS, AGREED TO SIGN CONSENT AFTER SPEAKING TO PHYSICIAN THIS AM. PT AND NURSE SPOKE WITH DAUGHTERBROWN, THIS AM REGARDING PROCEDURE AND PATIENT CURRENT STATUS. NO CONCERNS VOICED BY DAUGHTER. HIGH FALL PRECAUTIONS IN PLACE, CALL LIGHT WITHIN REACH.
[2020-02-14 08:00] VITALS: BP 104/61
--- NOTE | 2020-02-14 14:34 | NUR ---
VSS AT 0700, MED SURG STATUS, ROOM AIR, PATIENT WENT TO PREPOST AT 0730 AM. MESH HERNIA REPAIR, MIDLINE ABD INCISION CRISTHIAN, SUTURES AND DRESSED WITH ABD BINDER. BEDREST POSTPROCEDURE, EGAN IN PLACE- ORDER REMOVE POST OP DAY 1, PATIENT INCONTINENT OF BLADDER. UP WITH ONE AND A WALKER WITH GAIT BELT, WALKS TO CHAIR. HOURLY ROUNDING PERFORMED, POSSESSIONS AND CALL LIGHT WITHIN REACH.
--- NOTE | 2020-02-14 16:28 | NUR ---
ASSUMED CARE OF PT THIS AM AROUND 1400- MS STATUS IN PLACE AND MAINTAINED INDICATE- IV NOTED TO LEFT HAND AND RIGHT FA INTACT AND SL-EGAN IN PLACE D/D CLEAR YELLOW URINE- LUIS DRAIN NOTED IN PLACE TO RLQ, MINIMAL SEROSANGUINEOUS DRAINGE NOTED- K+ NOTED AT 3.3 AND CURRENLTY BEING REPLACED PER PROTOCOL- PT NOTED TO TOLERATE CLEAR LIQUIDS GOOD FOR LUNCH, DIET ADVANCE TO FULL LIQUIDS FOR DINNER- DRESSING NOTED TO RIGHT FA FOR REPORTED SKIN TEAR, C/D/I- PT DENIES ANY C/O PAIN/DISCOMFORT AT THIS TIME- CALL LIGHT AND PERSONAL BELONGINGS WITH IN REACH- ALL NEEDS MET AT THIS TIME-WCTM
--- NOTE | 2020-02-14 16:55 | NUR ---
PT.HAD SURGERY THIS AM. CAME FROM REHAB YESTERDAY. P.T./O.T. ORDERED TO EVAL FOR DISCHARGE PLANNING NEEDS. WAS READY FOR POSSIBLE DISCHARGE SOON, IF STILL WOULD HAVE BEEN ON REHAB UNIT.
[2020-02-14 19:35] VITALS: BP 97/55
[2020-02-14 23:58] VITALS: BP 140/95
[2020-02-15 03:23] LABS: ABSOLUTE LYMPHOCYTES 1.5 thou/uL (0.8-5.3); ABSOLUTE MONOCYTES 1.4 thou/uL (0.0-1.2); ABSOLUTE NEUTROPHILS 8.4 thou/uL (1.6-8.1); BASOPHILS 0.2 %; HEMATOCRIT 28.2 % (37.0-47.0); HEMOGLOBIN 8.7 gm/dL (12.0-15.0); LYMPHOCYTES 13.7 %; MCH 23.6 pg (26.0-34.0); MCV 76.2 fL (80.0-100.0); MONOCYTES 12.1 %; MPV 7.6 fl. (7.2-11.1); NUCLEATED RBCS 0 /100WBC; PLATELET COUNT* 464 thou/uL (150-400); RDW-CV 20.3 % (10.5-14.5); WBC 11.3 thou/uL (4.0-11.0)
[2020-02-15 03:35] LABS: CALCIUM 8.5 mg/dL (8.5-10.1); CREATININE 0.8 mg/dL (0.6-1.3); POTASSIUM 4.2 mmol/L (3.5-5.1)
--- NOTE | 2020-02-15 04:57 | NUR ---
ASSUMED CARE OF PT 02/14/20 AT APPROX 1930. PT A&OX4, ON 2L O2 NC, EGAN AND LUIS DRAIN IN PLACE, MID-LINE SURGICAL INCISION WITH DRSG AND ABD BINDER - C/D/I, PT TURNED Q2H, VSS. PT BECAME ANXIOUS DURING SHIFT, DENIED ANY PAIN, AMBIEN GIVEN ORDERED - NOT EFFECTIVE. AFTER MIDNIGHT PT BECAME ANXIOUS, PARINOID, AGITATED, YELLING - REFUSED PO ATIVAN, THERAPUTIC COMMUNICATION UNEFFECTIVE. PHYSICIAN NOTIFIED APPROX 0400, ORDER GIVEN FOR ZYPREXA 7.5MG IM - MED GIVEN ORDERED. WILL CONTINUE TO MONITOR PT
[2020-02-15 05:20] LABS: ANISOCYTOSIS 2+; HYPOCHROMASIA 2+; POIKILOCYTOSIS 1+
[2020-02-15 05:21] LABS: MACROCYTES 1+; OVALOCYTES 1+; POLYCHROMASIA 1+; SCHISTOCYTES 1+
[2020-02-15 05:22] LABS: TARGET CELLS Occasional
[2020-02-15 07:42] VITALS: BP 137/54
--- NOTE | 2020-02-15 09:24 | NUR ---
ASSUMED CARE OF PT THIS AM AROUND 0715- M/S STATUS IN PLACE INDICATED- UPON ASSESSMENT PT NOTED TO BE RESTLESS, CONFUSED, AND AGGITATED; PT NOTED TO BE TRYING TO CLIMB OUT OF BED STATING "I'M GOING HOME"- PT NOT ABLE TO BE REDIRECTED- NOTED TO BE YELLING OUT- PRN HALDOL GIVEN AT 0817, WITH NOTED IMPROVEMENT- PT UP TO BED SIDE RECLINER THIS AM- EGAN IN PLACE D/D YELLOW URINE- LUIS DRAIN NOTED TO RLQ INTACT WITH MINIMAL SEROSANGUINEOUS DRAINGE NOTED- DRESSING TO MIDLINE INCISSION NOTED INTACT WITH ABD BLINDER- IV NOTED TO RIGHT FA INTACT AND SL- POOR PO INTAKE NOTED THIS AM WITH BREAKFAST, DESPITE INCOURAGEMENT- PT DENIES ANY C/O PAIN- CALL LIGHT AND PERSONAL BELONGINGS WITH IN REACH-ALL NEEDS MET AT THIS TIME-WCTM
--- NOTE | 2020-02-15 14:08 | NUR ---
CM spoke Pt's dtr via phone. Pt admitted from acute rehab and per dtr the plan is for Pt [place]. Rehab consult placed. Prior to acute rehab, Pt resided at home alone and was independent. Pt uses a walker for mobility, but also has a wc and power chair. Pt has a cleaning lady that comes in on Mondays and Fridays, paid for through her [place] [employer]. Pt receives Meals on Wheels and is able to prepare lite meals also. Hx of [facility]. Per dtr, Pt's son use to be able to check on her, but dtr states that he almost a year ago, dtr resides in [facility]. Therapy evals ordered. Acute rehab will have to reassess [place] to requalify Pt for acute rehab. Following.
[2020-02-15 19:32] LABS: % SATURATION 3 % (20-39); IRON 10 ug/dL (50-175)
[2020-02-15 20:00] VITALS: BP 119/66
[2020-02-16 00:55] VITALS: BP 94/64
--- NOTE | 2020-02-16 05:16 | NUR ---
PT A&O X 2-3, CONFUSED AT TIMES. PT REFUSED TO TAKE MEDS. MIDLINE DRESSING CLEAN AND INTACT. LUIS DRAIN IN PLACE WITH MINIMAL SEROSANGUINEOUS DRAINAGE. NO C/O PAIN. WILL CONTINUE TO MONITOR.
[2020-02-16 07:50] VITALS: BP 96/65
[2020-02-16 09:14] LABS: HEMATOCRIT 26.2 % (37.0-47.0); HEMOGLOBIN 8.1 gm/dL (12.0-15.0); MCH 23.4 pg (26.0-34.0); MCHC 30.8 g/dL (28.0-37.0); MPV 7.4 fl. (7.2-11.1); RBC 3.45 mil/uL (4.20-5.00); RDW-CV 20.3 % (10.5-14.5); WBC 10.3 thou/uL (4.0-11.0)
[2020-02-16 09:36] LABS: ALBUMIN 2.7 g/dL (3.4-5.0); CREATININE 0.7 mg/dL (0.6-1.3); MAGNESIUM 1.9 mg/dL (1.8-2.4); PHOSPHORUS* 3.5 mg/dL (2.5-4.9)
--- NOTE | 2020-02-16 14:07 | PATH ---
[address] [address] PATHOLOGY RPT PROCEDURE Name: ALMA TERRY Room: [address] IN [facility]#: [id number] Admission: 02/13/20 Date of : 34 Discharge: Report #: [id number] Path Case #: [id number] LCA Accession Number: [id number] . 01 Material submitted: . hernia - HERNIA SAC . 01 Clinical history: . Incarcerated ventral hernia . 02 Diagnosis: Fibroadipose tissue, "hernial sac", herniorrhaphy: - Sacular fibroadipose tissue consistent with hernial sac. (SHA:yfn; 02/16/2020) MBR 02/16/2020 1228 Local . 02 Electronically signed: . Remigio Arias MD, Pathologist NPI- [id number] . 01 Gross description: . The specimen is received in formalin, labeled "Degraffenreid, Alma, hernia sac" and consists of 2 segments of yellow orange lobulated tissue partially encapsulated pink-steve membranous tissue measuring 5.5 x 3.9 x 1.9 cm and 7.3 x 4.1 x 1.5 cm. Sectioning reveals no gross lesions and client account representative sections are submitted in A1. ([facility]; 02/15/2020) JOSEPHQ/AZEB 02/15/2020 1131 Local . 02 Pathologist provided ICD-10: K43.9 . 02 CPT . 565329 Specimen Comment: A courtesy copy of this report has been sent to [phone] Specimen Comment: [phone], Specimen Comment: Report sent to , DR VARGAS / DR DAVILA Performed at: 01 [facility] [address] [id number] MD Pedro Mckeon MD Phone: [phone] Performed at: 02 [facility] [id number] [id number] MD Benjie Copeland MD Phone: [phone]
--- NOTE | 2020-02-16 16:24 | NUR ---
SW spoke with pt dtr about dc planning as initial review from inpt rehab was that pt would not be appropriate at this time for inpt rehab unit. Pt does not have SNF options due to Medicaid primary but may be able to dc to a SNF and receive therapies under Medicare part B. Pt dtr explained that she will call her mother and encourage her to participate in therapies and get better or else pt may need to be placed in residential adjunct faculty for medical terminology. Pt dtr suggested [facility] as pt was there in the past. DC resource management planner to fax referral to [facility]. ETHAN/ANITA to continue to follow to assist with safe dc planning.
[2020-02-16 16:31] VITALS: BP 101/42
--- NOTE | 2020-02-16 16:57 | NUR ---
PATIENT RESTING UP IN CHIAR. PATIENT IS UP WITH MODERATE ASSIST. PATIENT IS ALERT AND ORIENTED AT THIS TIME. PATIENT HAS COMPLAINTS OF BEING SORE BUT DENIES ANY NEED FOR PAIN MEDICATION. PATIENT HAS WORKED WITH THERAPIES. PATIENT HAS MIDLINE INSICION, DRESSING CHANGED, WOUND APPROXIMATED WELL WITH CRISTHIAN. PATIENT HAS GOOD APPETITE THIS EVENING. PATIENT DENIES ANY NEEDS AT THIS TIME. CALL LIGHT WITHIN REACH. WILL CONTINUE TO MONITOR.
--- NOTE | 2020-02-16 17:20 | NUR ---
FAXED REFERRAL TO [facility] FOR [facility]. WILL FOLLOW UP ON 02/19/20 THAT THEY RECEIVED AND BED AVAILABILITY. [facility] [phone]; [phone] [facility] [phone]
[2020-02-16 20:00] VITALS: BP 110/58
[2020-02-17 00:03] VITALS: BP 91/65
--- NOTE | 2020-02-17 05:52 | NUR ---
ASSESSMENTS COMPLETED CHARTED, MEDICATIONS ADMINISTERED PER MAR. HOURLY ROUNDING FOR SAFETY. CALL LIGHT WITHIN REACH. CONT PLAN OF CARE.
[2020-02-17 08:00] VITALS: BP 92/68
[2020-02-17 09:44] LABS: HEMATOCRIT 25.7 % (37.0-47.0); HEMOGLOBIN 7.9 gm/dL (12.0-15.0); MCH 23.7 pg (26.0-34.0); MCHC 30.6 g/dL (28.0-37.0); MCV 77.4 fL (80.0-100.0); MPV 8.2 fl. (7.2-11.1); RBC 3.32 mil/uL (4.20-5.00); RDW-CV 20.5 % (10.5-14.5); WBC 9.5 thou/uL (4.0-11.0)
[2020-02-17 09:48] LABS: CALCIUM 7.8 mg/dL (8.5-10.1); CREATININE 0.7 mg/dL (0.6-1.3); POTASSIUM 4.9 mmol/L (3.5-5.1)
[2020-02-17 16:37] VITALS: BP 120/55
--- NOTE | 2020-02-17 17:37 | NUR ---
PT C/O PAIN TO IV SITE AND FOUND INFILTRATED. NEW IV PLACED. VSS ON RA. PT HAS REQUESTED TO BE CHANGED AFTER VOIDING Q 5-30 MINUTES. PUREWICK APPLIED FOR PROTECTION OF BREAKDOWN. IV IRON GIVEN. PT TO TRANSFER TO REHAB STATUES WITHIN NEXT 1-2 DAYS. CLWR.WCTM
[2020-02-17 20:45] VITALS: BP 98/63
[2020-02-18] VITALS: BP 114/57
[2020-02-18 05:12] LABS: HEMATOCRIT 26.2 % (37.0-47.0); HEMOGLOBIN 7.9 gm/dL (12.0-15.0); MCHC 30.2 g/dL (28.0-37.0); MCV 76.1 fL (80.0-100.0); MPV 8.1 fl. (7.2-11.1); RBC 3.44 mil/uL (4.20-5.00); RDW-CV 20.1 % (10.5-14.5); WBC 14.8 thou/uL (4.0-11.0)
[2020-02-18 05:22] LABS: ALBUMIN 2.5 g/dL (3.4-5.0); CALCIUM 7.7 mg/dL (8.5-10.1); CREATININE 0.7 mg/dL (0.6-1.3); MAGNESIUM 1.7 mg/dL (1.8-2.4); PHOSPHORUS* 3.5 mg/dL (2.5-4.9)
[2020-02-18 05:51] LABS: POTASSIUM 3.4 mmol/L (3.5-5.1)
[2020-02-18 08:00] VITALS: BP 85/43
[2020-02-18 11:42] VITALS: BP 99/57
--- NOTE | 2020-02-18 15:03 | NUR ---
assumed pt care report received from nurse. pt is aox4. on ra. o2 saturation is 91%. vs taken. bp 85/43. blood pressure medicine held in the am. blood pressure medicine given later in the am when bp was checked again.see chart and emar. pt complains of pain in right knee. lidocaine patch and diclofenac given for pain. noam drain in intact. drainage is serosanguinous colored. k and mag replaced. abdominal dressing is intact. pt daughter called the nursing station and stated that she was ok with patient going to rehab inpatient. purewick catheter on. medsurg status. soft fiber diet. pt ot of bed to recliner. pt walked with physical therapist help. call light at reach. will continue to monitor pt.
[2020-02-18 16:36] VITALS: BP 120/53
--- NOTE | 2020-02-18 18:35 | NUR ---
BENJAMIN bandage place in right knee as requested. pt placed back in bed. new purewick catheter placed in. noam drained 20 cc serosanguinous drainage obtained.
[2020-02-18 21:04] VITALS: BP 105/53
[2020-02-19 04:00] VITALS: BP 97/54
[2020-02-19 05:03] LABS: HEMATOCRIT 26.6 % (37.0-47.0); HEMOGLOBIN 8.1 gm/dL (12.0-15.0); MCH 23.3 pg (26.0-34.0); MCHC 30.3 g/dL (28.0-37.0); MCV 76.6 fL (80.0-100.0); RBC 3.47 mil/uL (4.20-5.00); WBC 11.7 thou/uL (4.0-11.0)
[2020-02-19 05:06] LABS: CREATININE 0.7 mg/dL (0.6-1.3); POTASSIUM 3.3 mmol/L (3.5-5.1)
--- NOTE | 2020-02-19 06:23 | NUR ---
PATIENT DID NOT REPORT ANY PAIN ON ASSESSMENTS OR NAUSEA. SHE WAS ABLE TO SLEEP ALL SHIFT AND TOOK ALL MEDS SCHEDULED. LUIS DRAIN VERY LITTLE OUTPUT (5 ml) ABD DRESSING IS INTACT. REPLACING POTASSIUM THIS AM. UP WITH ASSISTANCE AND WALKER, ALERT AND ORIENTED. PLAN IS TO D/C TO REHAB AWAITING PLACEMENT. WILL CONTINUE TO MONITOR.
[2020-02-19 08:00] VITALS: BP 126/54
--- NOTE | 2020-02-19 08:56 | NUR ---
ANITA left message for Laura at [facility] to see if they will be able to accept Pt for skilled. Awaiting decision. Following.
--- NOTE | 2020-02-19 09:49 | NUR ---
ASSUMED PT CARE REPORT RECEIVED FROM NURSE PT IS AOX4. ON RA. MEDSURG STATUS. VSS. AM MEDICATION ADMINISTERED. PT OUT OF BED TO CHAIR WITH NURSE ASSISTANCE AFTER EATING BREAKSFAST THIS AM. MIDLINE ABDOMINAL DRESSING CHANGED. LUIS DRAIN IN PLACE. NO DRAINAGE NOTICED YET.BED BATH AND AM CARE PERFROMED AT BEDSIDE. PLANNING DISCHARGE TO REHAB. THIS NURSE SPOKE WITH MARLENE DOCKERY WHO SIGNED OFF. THIS NURSE ALSO SPOKE WITH SENIOR CHEMIST WHO IS TO CONTACT REHAB FOR PT'S DISCHARGE. PHYSICAL THERAPY CURRENTLY WORKING WITH PATIENT. NO FURHTER COMPLAINT FROM PATIENT. PT STATES " I FEEL BETTER AND STRONGER TODAY". CALL IGHT WITHIN REACH. FALL PRECAUTIOIN IN PLACE. WILL CONTINUE TO MONITOR PT.
--- NOTE | 2020-02-19 11:17 | NUR ---
FAXED COVID-19 ASSESSMENT FORM TO [facility]. PATIENT WAS NOT SYMPTOMATIC SO NO TEST WAS PERFORMED. SIGNED BY DAVE SWANSON RN. [facility] [phone]; [phone], [facility] [phone]
[2020-02-19 13:16] VITALS: BP 126/54
[2020-02-19 13:17] VITALS: BP 126/54
[2020-02-19] MEDS ORDERED: ATIVAN2 MG/1 ML IV PUSH (13:24)
[2020-02-19] MEDS ORDERED: IRON325 M1 PO (13:35)
--- NOTE | 2020-02-19 16:33 | NUR ---
Pt discharging to acute rehab today. Updated Pt's dtr. Faxed dc orders
--- NOTE | 2020-02-19 16:55 | NUR ---
PT DISCHARGED FROM TELE FLOOR TO REHAB UNIT BEDD 322 ACCOMPANIED BY THIS NURSE. REPORT GIVEN TO YOGA COORDINATOR. BELONGINGS BROUGHT ALONG. IV LINE REMOVED
== END 2020-02-19 16:48 | DRG 335 ==
LOC: M.2W 16:06
PROVIDERS: Surgery; ADMIT Family Medicine
PROC: 0DN80ZZ Release Small Intestine, Open Approach (ICD-10-PCS; principal; 2020-02-14)
PROC: 0WUF0JZ Supplement Abdominal Wall with Synthetic Substitute, Open Approach (ICD-10-PCS; principal; 2020-02-14)
DX: K43.0 Incisional hernia with obstruction, without gangrene (principal); I50.33 Acute on chronic diastolic (congestive) heart failure; I48.91 Unspecified atrial fibrillation; I11.0 Hypertensive heart disease with heart failure; M19.90 Unspecified osteoarthritis, unspecified site; M25.461 Effusion, right knee; D50.9 Iron deficiency anemia, unspecified; K57.90 Diverticulosis of intestine, part unspecified, without perforation or abscess without bleeding; Z79.899 Other long term (current) drug therapy; Z90.710 Acquired absence of both cervix and uterus; Z79.01 Long term (current) use of anticoagulants; Z90.49 Acquired absence of other specified parts of digestive tract; Z91.041 Radiographic dye allergy status

== ENCOUNTER 2020-02-19 13:32 | Inpatient (IN) | payer MEDICAID, MEDICARE ==
[~2020-02-19] VITALS: Ht 157.5 cm; Wt 67.1 kg
[~2020-02-19 13:32] MED LIST changes: +AMBIEN5 MG PO; +ATIVAN2 MG/1 ML IV PUSH; +BISACODYL10 MG RECTAL; +CARDIZEM SR 60M60 MG PO; +CEFAZOLIN1 GM/50 M1 IV; +COLACE100 MG PO; +FLEET ENEMA133 ML RECTAL; +FUROSEMIDE 40 M40 MG PO; +LIDODERM1 EACH TOP; +LORAZEPAM 0.50.5 MG PO; +LORAZEPAM 22 MG/1 ML IV PUSH; +MILK OF MA2400 MG/11 PO; +POTASSIUM20 PO; +PROTONIX40 M1 PO; +TYLENOL325 M1 PO; +ULTRAM50 MG PO; +ZOFRAN 4 MG ORAL4 MG SUBLING
[2020-02-19] MEDS ORDERED: IRON325 M1 PO (13:35)
[2020-02-19 17:10] VITALS: BP 97/50
[2020-02-19 20:45] VITALS: BP 106/45
[2020-02-20 04:33] LABS: HEMATOCRIT 26.3 % (37.0-47.0); MCH 23.5 pg (26.0-34.0); MCHC 30.6 g/dL (28.0-37.0); MCV 76.8 fL (80.0-100.0); MPV 7.3 fl. (7.2-11.1); RBC 3.42 mil/uL (4.20-5.00); WBC 13.2 thou/uL (4.0-11.0)
[2020-02-20 04:46] LABS: CALCIUM 8.1 mg/dL (8.5-10.1); CREATININE 0.7 mg/dL (0.6-1.3); POTASSIUM 3.7 mmol/L (3.5-5.1)
[2020-02-20 08:00] VITALS: BP 108/55
[2020-02-20 19:25] VITALS: BP 131/51
[2020-02-21 08:00] VITALS: BP 128/55
[2020-02-21 19:50] VITALS: BP 103/46
[2020-02-22 08:00] VITALS: BP 112/49
[2020-02-22 19:40] VITALS: BP 100/50
[2020-02-23 20:00] VITALS: BP 110/56
[2020-02-24 08:00] VITALS: BP 103/60
[2020-02-24 20:00] VITALS: BP 104/48
[2020-02-25 06:25] LABS: HEMATOCRIT 23.5 % (37.0-47.0); HEMOGLOBIN 7.5 gm/dL (12.0-15.0); MCH 24.8 pg (26.0-34.0); MCV 77.5 fL (80.0-100.0); MPV 6.9 fl. (7.2-11.1); RBC 3.04 mil/uL (4.20-5.00); RDW-CV 22.1 % (10.5-14.5); WBC 9.9 thou/uL (4.0-11.0)
[2020-02-25 06:43] LABS: ALBUMIN 2.1 g/dL (3.4-5.0); CALCIUM 8.3 mg/dL (8.5-10.1); CREATININE 0.7 mg/dL (0.6-1.3); POTASSIUM 3.6 mmol/L (3.5-5.1); TOTAL BILIRUBIN 0.3 mg/dL (<0.1-1.0); TOTAL PROTEIN 5.7 g/dL (6.4-8.2)
[2020-02-25 08:00] VITALS: BP 109/52
[2020-02-25 19:35] VITALS: BP 97/48
[2020-02-26 05:44] LABS: ABSOLUTE BASOPHILS 0.1 thou/uL (0.0-0.2); ABSOLUTE EOSINOPHILS 0.2 thou/uL (0.0-0.7); ABSOLUTE LYMPHOCYTES 2.6 thou/uL (0.8-5.3); ABSOLUTE MONOCYTES 0.8 thou/uL (0.0-1.2); ABSOLUTE NEUTROPHILS 4.8 thou/uL (1.6-8.1); BASOPHILS 1.1 %; EOSINOPHILS 2.5 %; HEMOGLOBIN 7.5 gm/dL (12.0-15.0); LYMPHOCYTES 30.6 %; MCH 24.3 pg (26.0-34.0); MCHC 31.3 g/dL (28.0-37.0); MCV 77.6 fL (80.0-100.0); MONOCYTES 9.8 %; MPV 6.9 fl. (7.2-11.1); NUCLEATED RBCS 0 /100WBC; PLATELET COUNT* 370 thou/uL (150-400); RBC 3.09 mil/uL (4.20-5.00); RDW-CV 21.5 % (10.5-14.5); WBC 8.6 thou/uL (4.0-11.0)
[2020-02-26 06:06] LABS: ALBUMIN 2.1 g/dL (3.4-5.0); CALCIUM 8.2 mg/dL (8.5-10.1); CREATININE 0.8 mg/dL (0.6-1.3); POTASSIUM 3.4 mmol/L (3.5-5.1); TOTAL BILIRUBIN 0.3 mg/dL (<0.1-1.0); TOTAL PROTEIN 5.7 g/dL (6.4-8.2)
[2020-02-26 06:28] LABS: ANISOCYTOSIS 2+; HYPOCHROMASIA 2+; MICROCYTES 2+
[2020-02-26 06:29] LABS: PLATELET ESTIMATE ADEQUATE
[2020-02-26 07:50] VITALS: BP 112/60
[2020-02-26 12:35] VITALS: BP 82/55
[2020-02-26 12:50] VITALS: BP 90/54
[2020-02-26 14:57] VITALS: BP 105/66
[2020-02-26 19:30] VITALS: BP 106/67
[2020-02-27 06:35] LABS: HEMATOCRIT 24.3 % (37.0-47.0); HEMOGLOBIN 7.4 gm/dL (12.0-15.0); MCHC 30.5 g/dL (28.0-37.0); MCV 78.6 fL (80.0-100.0); MPV 7.3 fl. (7.2-11.1); RBC 3.1 mil/uL (4.20-5.00); RDW-CV 22.2 % (10.5-14.5); WBC 7.9 thou/uL (4.0-11.0)
[2020-02-27 06:49] LABS: ALBUMIN 2.1 g/dL (3.4-5.0); CREATININE 0.7 mg/dL (0.6-1.3); POTASSIUM 3.5 mmol/L (3.5-5.1); TOTAL BILIRUBIN 0.3 mg/dL (<0.1-1.0); TOTAL PROTEIN 5.7 g/dL (6.4-8.2)
[2020-02-27 08:00] VITALS: BP 117/84
[2020-02-27 19:30] VITALS: BP 104/51
[2020-02-28 08:00] VITALS: BP 102/57
[2020-02-28 19:40] VITALS: BP 104/46
[2020-02-29 08:00] VITALS: BP 112/50
[2020-02-29 20:09] VITALS: BP 95/45
[2020-03-01 07:39] VITALS: BP 119/64
[2020-03-01 20:09] VITALS: BP 89/32
[2020-03-02 09:00] VITALS: BP 104/68
[2020-03-02 19:49] VITALS: BP 128/56
[2020-03-03 07:44] LABS: HEMATOCRIT 25.3 % (37.0-47.0); HEMOGLOBIN 7.9 gm/dL (12.0-15.0)
[2020-03-03 07:52] LABS: ALBUMIN 2.1 g/dL (3.4-5.0); CALCIUM 7.9 mg/dL (8.5-10.1); CREATININE 0.7 mg/dL (0.6-1.3); POTASSIUM 3.5 mmol/L (3.5-5.1)
[2020-03-03 08:00] VITALS: BP 124/51
[2020-03-03 08:23] VITALS: BP 124/51
[2020-03-03 19:15] VITALS: BP 105/48
[2020-03-04 07:51] VITALS: BP 130/42
[2020-03-04 20:40] VITALS: BP 111/53
[2020-03-05 08:30] VITALS: BP 121/68
[2020-03-05 19:50] VITALS: BP 104/44
[2020-03-06 08:00] VITALS: BP 128/67
[2020-03-06 15:51] VITALS: BP 128/67
== END 2020-03-06 17:00 | DRG 947 ==
LOC: M.REH 13:32
PROVIDERS: Internal Medicine; ADMIT Physical Medicine & Rehabilitation
DX: R53.81 Other malaise (principal); I50.33 Acute on chronic diastolic (congestive) heart failure; J69.0 Pneumonitis due to inhalation of food and vomit; J96.20 Acute and chronic respiratory failure, unspecified whether with hypoxia or hypercapnia; E43 Unspecified severe protein-calorie malnutrition; A41.9 Sepsis, unspecified organism; L03.115 Cellulitis of right lower limb; J44.1 Chronic obstructive pulmonary disease with (acute) exacerbation; M25.461 Effusion, right knee; I11.0 Hypertensive heart disease with heart failure; D50.9 Iron deficiency anemia, unspecified; I48.91 Unspecified atrial fibrillation; K57.90 Diverticulosis of intestine, part unspecified, without perforation or abscess without bleeding; M17.11 Unilateral primary osteoarthritis, right knee; K43.2 Incisional hernia without obstruction or gangrene; Z91.041 Radiographic dye allergy status; Z90.710 Acquired absence of both cervix and uterus; Z90.49 Acquired absence of other specified parts of digestive tract; Z82.49 Family history of ischemic heart disease and other diseases of the circulatory system; Z79.82 Long term (current) use of aspirin; Z79.899 Other long term (current) drug therapy; Z68.27 Body mass index [BMI] 27.0-27.9, adult

== ENCOUNTER 2020-10-28 16:47 | Inpatient (IN) | payer MEDICAID, MEDICARE ==
[~2020-10-28] VITALS: Ht 160 cm; Wt 74.4 kg
[~2020-10-28 16:47] MED LIST changes: +IRON325 M1 PO; -PROTONIX40 M1 PO; +PROTONIX40 M2 PO
[2020-10-28 17:25] LABS: URINE BILIRUBIN NEGATIVE (Negative); URINE BLOOD 3+ (Negative); URINE CLARITY CLOUDY; URINE COLOR YELLOW; URINE GLUCOSE-RANDOM NEGATIVE (Negative); URINE KETONES NEGATIVE (Negative); URINE NITRITE-REFLEX NEGATIVE (Negative); URINE PROTEIN TRACE (Negative); URINE SPECIFIC GRAVITY 1.025 (1.005-1.030); URINE UROBILINOGEN 0.2 E.U./dl (0.2-1.0)
[2020-10-28 17:26] LABS: URINE LEUKOCYTES-REFLEX 2+ (Negative)
[2020-10-28 17:36] LABS: ABSOLUTE EOSINOPHILS 0.1 thou/uL (0.0-0.7); ABSOLUTE LYMPHOCYTES 2.3 thou/uL (0.8-5.3); ABSOLUTE MONOCYTES 1.4 thou/uL (0.0-1.2); ABSOLUTE NEUTROPHILS 7.8 thou/uL (1.6-8.1); BASOPHILS 0.3 %; EOSINOPHILS 1.1 %; HEMATOCRIT 38.7 % (37.0-47.0); HEMOGLOBIN 12.1 gm/dL (12.0-15.0); LYMPHOCYTES 19.9 %; MCHC 31.3 g/dL (28.0-37.0); MCV 79.9 fL (80.0-100.0); MONOCYTES 11.8 %; MPV 7.4 fl. (7.2-11.1); NUCLEATED RBCS 0 /100WBC; PLATELET COUNT* 265 thou/uL (150-400); POLYS 66.9 %; RBC 4.84 mil/uL (4.20-5.00); RDW-CV 17.1 % (10.5-14.5); WBC 11.7 thou/uL (4.0-11.0)
[2020-10-28 17:47] LABS: CALCIUM 8.9 mg/dL (8.5-10.1); CREATININE 0.7 mg/dL (0.6-1.3); POTASSIUM 3.8 mmol/L (3.5-5.1)
[2020-10-28 17:48] LABS: APTT 28.6 Seconds (25.0-31.3); INR 1.1; PROTIME 11.5 Seconds (9.20-11.50)
[2020-10-28 17:55] LABS: BACTERIA-REFLEX >30 Many /HPF (None Seen); CASTS None Seen /LPF (None Seen); CRYSTALS None Seen /LPF (None Seen); MUCUS 4-6 Moderate strn/LPF (None Seen); SQUAMOUS 4-10 Moderate /LPF (0-3); URINE WBC-REFLEX >25 Many /HPF (0-5); WBC CLUMPS Many (None Seen)
[2020-10-28 18:03] LABS: TOTAL BILIRUBIN 0.5 mg/dL (<0.1-1.0); TOTAL PROTEIN 7.7 g/dL (6.4-8.2)
[2020-10-28] MEDS ORDERED: KEFLEX500 M1 PO (18:22)
[2020-10-28 23:45] VITALS: BP 133/75
[2020-10-29] VITALS (7 sets, daily range): BP systolic 94–154; BP diastolic 53–71
--- NOTE | 2020-10-29 12:07 | EKG ---
[place] [address] ELECTROCARDIOGRAM REPORT Name: ASHLEY TERRYSHAHNAZ Finch Room: [address] ADM IN [facility]#: [id number] Admission: 10/28/20 Attend Phys: Harmony Agustin, Discharge: Date of : 34 Date of Service: 10/28/20 1734 Report #: [id number] THIS REPORT FOR: //name// [facility] ED Test Date: 2020-10-28 Test Time: 17:34:15 Pat Name: ALMA TERRY Department: Room: [facility] Gender: F Standards Analyst: CCD : 1930 Requested By: Veronica Pierce Order Number: [id number] MD: Jay Hopkins Measurements Intervals [place] Rate: 77 P: SD: QRS: -2 QRSD: 93 T: 18 QT: 404 QTc: 458 Interpretive Statements Atrial fibrillation Baseline wander in lead(s) V1 Compared to ECG 01/27/2020 08:49:46 No significant changes Electronically Signed On 10-29-2020 12:07:44 EDUCATIONAL PSYCHOLOGY PROFESSOR by Jay Hopkins [email or web address] <ELECTRONICALLY SIGNED> By: Jay Hopkins MD, [facility] 10/29/20 1207 1734 1734 Jay Hopkins MD, [facility] /EPI
[2020-10-29 14:03] LABS: URINE BILIRUBIN NEGATIVE (Negative); URINE BLOOD 2+ (Negative); URINE CLARITY CLOUDY; URINE COLOR YELLOW; URINE GLUCOSE-RANDOM NEGATIVE (Negative); URINE KETONES NEGATIVE (Negative); URINE LEUKOCYTES 3+ (Negative); URINE NITRITE NEGATIVE (Negative); URINE PROTEIN NEGATIVE (Negative); URINE UROBILINOGEN 0.2 E.U./dl (0.2-1.0)
[2020-10-29 14:12] LABS: SQUAMOUS 0-3 Few /LPF (0-3)
[2020-10-29 14:13] LABS: BACTERIA None Seen /HPF (None Seen); CASTS None Seen /LPF (None Seen); CRYSTALS None Seen /LPF (None Seen); MUCUS None Seen strn/LPF (None Seen); URINE RBC 3-10 Few /HPF (0-2); URINE WBC >25 Many /HPF (0-5)
[2020-10-29] MEDS ORDERED: CEFDINIR300 MG PO (18:36)
== END 2020-10-29 19:16 | disposition home or self-care (01) | DRG 690 ==
LOC: M.ERS 16:47 → M.2W 19:57 → M.TBA-ER 19:57 → M.2W 23:58
PROVIDERS: Internal Medicine; Nurse Practitioner Family; ADMIT Internal Medicine; ATTEND Internal Medicine
DX: N30.01 Acute cystitis with hematuria (principal); R65.10 Systemic inflammatory response syndrome (SIRS) of non-infectious origin without acute organ dysfunction; K57.90 Diverticulosis of intestine, part unspecified, without perforation or abscess without bleeding; I50.9 Heart failure, unspecified; I48.91 Unspecified atrial fibrillation; Z60.2 Problems related to living alone; Z20.828 Contact with and (suspected) exposure to other viral communicable diseases; I11.0 Hypertensive heart disease with heart failure; M17.11 Unilateral primary osteoarthritis, right knee; Z91.041 Radiographic dye allergy status; Z90.49 Acquired absence of other specified parts of digestive tract; Z90.710 Acquired absence of both cervix and uterus

== ENCOUNTER 2021-03-18 06:23 | Inpatient (IN) | payer MEDICARE, MEDICAID ==
[~2021-03-18] VITALS: Ht 160 cm; Wt 83.8 kg
[~2021-03-18 06:23] MED LIST changes: +CEFDINIR300 MG PO
[2021-03-18 06:33] VITALS: BP 134/80
[2021-03-18 06:56] LABS: ABSOLUTE BASOPHILS 0.1 thou/uL (0.0-0.2); ABSOLUTE LYMPHOCYTES 1.8 thou/uL (0.8-5.3); ABSOLUTE MONOCYTES 1.4 thou/uL (0.0-1.2); ABSOLUTE NEUTROPHILS 10.1 thou/uL (1.6-8.1); BASOPHILS 0.4 %; EOSINOPHILS 0.1 %; HEMATOCRIT 40.9 % (37.0-47.0); HEMOGLOBIN 12.8 gm/dL (12.0-15.0); LYMPHOCYTES 13.2 %; MCH 25.8 pg (26.0-34.0); MCHC 31.4 g/dL (28.0-37.0); MCV 82.1 fL (80.0-100.0); MONOCYTES 10.5 %; MPV 7.8 fl. (7.2-11.1); NUCLEATED RBCS 0 /100WBC; PLATELET COUNT* 300 thou/uL (150-400); POLYS 75.8 %; RBC 4.98 mil/uL (4.20-5.00); RDW-CV 17.4 % (10.5-14.5); WBC 13.4 thou/uL (4.0-11.0)
[2021-03-18 07:05] LABS: CALCIUM 9.1 mg/dL (8.5-10.1); CREATININE 0.7 mg/dL (0.6-1.3); POTASSIUM 3.7 mmol/L (3.5-5.1)
[2021-03-18 07:08] LABS: APTT 26.4 Seconds (25.0-31.3); INR 1.1; PROTIME 11.6 Seconds (9.20-11.50)
[2021-03-18 07:15] LABS: ALBUMIN 3.5 g/dL (3.4-5.0); TOTAL BILIRUBIN 1.3 mg/dL (<0.1-1.0)
[2021-03-18 07:45] LABS: URINE BLOOD 1+ (Negative); URINE CLARITY CLEAR; URINE COLOR YELLOW; URINE GLUCOSE-RANDOM NEGATIVE (Negative); URINE KETONES 1+ (Negative); URINE NITRITE-REFLEX NEGATIVE (Negative); URINE PROTEIN 2+ (Negative); URINE SPECIFIC GRAVITY >= 1.030 (1.005-1.030)
--- NOTE | 2021-03-18 07:49 | NUR ---
PT UP TO BEDSIDE COMMODE WITH MODERATE ASSISTANCE FOR URINE SAMPLE. PT REPORTS ARTHRITIC PAIN TO R KNEE AND BACK WITH TRANSFER, NO OTHER COMPLAINTS NOTED. PT STATES SHE HAS WALKER AND WHEELCHAIR AT HOME FOR ASSISTANCE. PT ORIENTED X4 WITH ORIENTATION QUESTIONS, HOWEVER DOES NOT REMEMBER FALL AND REPEATS SELF DURING NORMAL CONVERSATION.
[2021-03-18 07:51] LABS: ICTOTEST (BILI CONFIRMATORY) Negative (Negative); URINE BILIRUBIN 1+ (Negative); URINE LEUKOCYTES-REFLEX 2+ (Negative)
[2021-03-18 07:54] LABS: BACTERIA-REFLEX >30 Many /HPF (None Seen); CASTS None Seen /LPF (None Seen); CRYSTALS None Seen /LPF (None Seen); SQUAMOUS 0-3 Few /LPF (0-3); URINE RBC 0-2 Rare /HPF (0-2); URINE WBC-REFLEX >25 Many /HPF (0-5)
--- NOTE | 2021-03-18 08:35 | EKG ---
[place] [address] ELECTROCARDIOGRAM REPORT Name: ALMA TERRY Stef Room: [facility]#: [id number] Admission: 03/18/21 Attend Phys: Discharge: Date of : 34 Date of Service: 03/18/21 0635 Report #: [id number] THIS REPORT FOR: //name// [facility] ED Test Date: 2021-03-18 Test Time: 06:35:41 Pat Name: ALMA TERRY Department: Room: Gender: F Hander In: VANDANA : 1930 Requested By: Jose De Jesus Tuttle Order Number: [id number] MD: Bolivar Matamoros Measurements Intervals [place] Rate: 79 P: [place]: QRS: 6 QRSD: 95 T: 20 QT: 351 QTc: 403 Interpretive Statements Atrial fibrillation Borderline repolarization abnormality Compared to ECG 10/28/2020 17:34:15 No significant changes Electronically Signed On 03-18-2021 8:35:06 CDT by Bolivar Matamoros [email or web address] <ELECTRONICALLY SIGNED> By: Bolivar Matamoros MD, [facility] 03/18/21 0835 0635 Bolivar Matamoros MD, [facility] /EPI
--- NOTE | 2021-03-18 09:19 | NUR ---
PT PROVIDED BREAKFAST TRAY
[2021-03-18 12:30] VITALS: BP 123/56
[2021-03-18 13:00] VITALS: BP 112/79; BP 123/56
[2021-03-18 16:00] VITALS: BP 143/94
--- NOTE | 2021-03-18 16:48 | NUR ---
RECEIVED REPORT FROM DAT SANCHEZ. PT ARRIVED ON UNIT AROUND 1300. ADMIT DONE IN CHART. VS STABLE. PT LYING IN BED. EGAN INTACT. IV INTACT. HEART MONITOR ATTACHED. YELLOW SOCKS PUT IN ROOM. PT UP WITH ASSIST X1. MEDS GIVEN PER JAN. AFIB. CONTROLLED. HAS CONSTANT ARTHRITIS PAIN. HOURLY ROUNDING PERFORMED. CALL LIGHT WITH IN REACH. WILL CONTINUE TO MONITOR.
[2021-03-18 20:00] VITALS: BP 114/52
[2021-03-19 04:11] LABS: HEMATOCRIT 34.2 % (37.0-47.0); MCH 25.7 pg (26.0-34.0); MCHC 31.2 g/dL (28.0-37.0); MCV 82.5 fL (80.0-100.0); MPV 8.4 fl. (7.2-11.1); RBC 4.14 mil/uL (4.20-5.00); RDW-CV 17.7 % (10.5-14.5); WBC 10.2 thou/uL (4.0-11.0)
[2021-03-19 04:20] LABS: HEMOGLOBIN 10.7 gm/dL (12.0-15.0)
[2021-03-19 04:26] LABS: CALCIUM 8.4 mg/dL (8.5-10.1); CREATININE 0.7 mg/dL (0.6-1.3); POTASSIUM 3.2 mmol/L (3.5-5.1)
[2021-03-19 08:00] VITALS: BP 134/74
[2021-03-19 11:50] VITALS: BP 113/83
[2021-03-19 16:00] VITALS: BP 118/79
--- NOTE | 2021-03-19 16:00 | NUR ---
CM ASSESSMENT: PT ALERT, AND ORIENTED. PT TEARFUL AND ASKING TO GO HOME. PT INFORMS THAT SHE RESIDES AT HOME ALONE AND THAT SHE HAS PAID CAREGIVERS 7 DAYS/WK 4-6 HOURS PER DAY, AND THE CAREGIVERS ASSIST HER WITH BATHING, DRESSING, COOKING, CLEANING, AND TRANSPORTATION. PT INFORMS THAT HER DTR CHECKS-IN ON HER DAILY. PT HAS 0 HX OF HH. PT HAS PAST HX OF SNF AT [facility]. PT HAS PAST HX OF ARU. PT MAY NEED INPT ARU AT D/C PENDING MOBILITY WITH PT/OT, SHE HAS MEDICAID ONLY INSURANCE. CM WILL REMAIN AVAILABLE TO ASSIST AND FOLLOW NEEDED.
--- NOTE | 2021-03-19 17:26 | NUR ---
RECEIVED REPORT. ASSUMED CARE OF PT AROUND 0730. AM ASSESSMENT AND VITALS COMPLETED CHARTED. MEDS PER EMAR. C4 PLANNER IN PLACE. TOLERATES FLUIDS AND DIET, BUT MUST BE FED. REMAINS CONFUSED. EGAN IN PLACE TO DD. CALL LIGHT WIHTIN REACH. HOURLY ROUNDING PERFORMED. FALL PRECAUTIONS IN PLACE.
[2021-03-19 20:00] VITALS: BP 122/62
[2021-03-20] VITALS: BP 143/74
[2021-03-20 04:00] VITALS: BP 155/61
[2021-03-20 04:19] LABS: HEMATOCRIT 33.1 % (37.0-47.0); HEMOGLOBIN 10.4 gm/dL (12.0-15.0); MCH 26.1 pg (26.0-34.0); MCHC 31.4 g/dL (28.0-37.0); MCV 83.3 fL (80.0-100.0); MPV 8.3 fl. (7.2-11.1); RBC 3.98 mil/uL (4.20-5.00); RDW-CV 17.6 % (10.5-14.5); WBC 9.2 thou/uL (4.0-11.0)
[2021-03-20 04:39] LABS: CALCIUM 8.1 mg/dL (8.5-10.1); CREATININE 0.7 mg/dL (0.6-1.3); POTASSIUM 3.1 mmol/L (3.5-5.1)
[2021-03-20] MEDS ORDERED: CEFDINIR300 MG PO (07:57)
[2021-03-20 08:00] VITALS: BP 103/60
[2021-03-20 12:00] VITALS: BP 107/62
--- NOTE | 2021-03-20 13:29 | NUR ---
PLAN OF CARE: PT/PT EVALS PENDING TO DETERMINE THE NEED FOR PT TO EITHER RETURN HOME AT D/C VS PT NEEDING INPT ARU. PLAN FOR PT TO D/C PENDING PT'S MOBILITY STATUS. CM WILL REMAIN AVAILABLE TO ASSIST AND FOLLOW NEEDED.
[2021-03-20 18:00] VITALS: BP 108/69
[2021-03-20 20:20] VITALS: BP 125/71
[2021-03-21] VITALS: BP 132/76
[2021-03-21 04:00] VITALS: BP 128/90
[2021-03-21 04:20] LABS: HEMATOCRIT 35.4 % (37.0-47.0); MCH 25.8 pg (26.0-34.0); MCV 83.2 fL (80.0-100.0); MPV 8.5 fl. (7.2-11.1); RBC 4.26 mil/uL (4.20-5.00); RDW-CV 18.1 % (10.5-14.5)
[2021-03-21 04:35] LABS: CALCIUM 8.6 mg/dL (8.5-10.1); CREATININE 0.7 mg/dL (0.6-1.3)
--- NOTE | 2021-03-21 06:00 | NUR ---
PT SLEPT MOST OF SHIFT. ASSESSMENT DOCUMENTED. MEDS GIVEN PER E-JAN. IV PATENT. NO REPORTS OF PAIN. PT REPOSITIONED THROUGH SHIFT. EGAN IN PLACE TO DEPENDANT DRAINAGE. FALL PRECAUTIONS IN PLACE. WILL CONTINUE WITH PLAN OF CARE.
[2021-03-21 08:00] VITALS: BP 137/76
[2021-03-21 12:50] VITALS: BP 150/72
--- NOTE | 2021-03-21 15:29 | NUR ---
PLAN OF CARE: PLAN FOR PT TO D/C TO INPT REHAB PENDING ACCEPTANCE. PT/OT EVALS PENDING. CM ATTEMPTED TO CONTACT PT'S DTR TO DISCUSS INPT REHAB OPTIONS IF INPT REHAB IN THIS HOSPITAL CONTINUES TO NOT HAVE A BED AVAILABLE. CM TO F/U WITH PT'S DTR TOMORROW. CM WILL REMAIN AVAILABLE TO ASSIST AND FOLLOW NEEDED.
--- NOTE | 2021-03-21 17:20 | NUR ---
EGAN OUT THIS SHIFT AND PT HAS STRESS INCONTINENCE BUT SOMETIMES MAKES IT TO THE COMMODE W/ HELP FROM NURSING STAFF. PT WEAK ON FEET AND TAKES TIME TO PIVOT, VERY ANXIOUS ABOUT GETTING UP AND MOVING AND VERY UNSTEADY.
[2021-03-21 20:00] VITALS: BP 138/86
[2021-03-22 00:28] VITALS: BP 158/48
--- NOTE | 2021-03-22 04:27 | NUR ---
PT SLEPT ON AND OFF THIS SHIFT. ASSESSMENT DOCUMENTED. MEDS GIVEN PER E-MAR. IV PATENT, FLUIDS INFUSING. PT VERY TEARFUL AND FORGETFUL AT BEGINING OF SHIFT. PT INCONTINENT OF URINE. REPOSITIONED THORUGH SHIFT. NO REPORTS OF PAIN. WILL CONTINUE WITH PLAN OF CARE.
[2021-03-22 05:01] VITALS: BP 153/71
[2021-03-22 08:00] VITALS: BP 169/67
[2021-03-22 16:00] VITALS: BP 112/77
[2021-03-22 19:40] VITALS: BP 124/80
--- NOTE | 2021-03-22 20:41 | NUR ---
patient report given to night guard nurse. Patient resting in bed, awake, alert. RA, bed alarm on, call light and all belongings within reach.
[2021-03-23 00:41] VITALS: BP 143/80
--- NOTE | 2021-03-23 05:08 | NUR ---
PT SLEPT MOST OF SHIFT. ASSESSMENT DOCUMENTED. MEDS GIVEN PER E-MAR. IV PATNET. NO REPORTS OF PAIN. FALL PRECAUTIONS IN PLACE. INCONTINENT THROUGH SHIFT. PT ABLE TO MAKE NEEDS KNOWN. WILL CONTINUE WITH PLAN OF CARE.
[2021-03-23 08:00] VITALS: BP 150/100
[2021-03-23 12:00] VITALS: BP 152/20
[2021-03-23 16:00] VITALS: BP 154/51
--- NOTE | 2021-03-23 16:37 | NUR ---
Patient resting in bed with call light with in reach, all belongings, SLIV, RA, A&O x 4, incontinent of B&B. Will continue with plan of care.
[2021-03-23 19:30] VITALS: BP 134/86
[2021-03-24] VITALS: BP 125/80
--- NOTE | 2021-03-24 05:31 | NUR ---
PT SLEPT MOST OF SHIFT. ASSESSMENT DOCUMENTED. MEDS GIVEN PER E-JAN. IV PATENT. NO REPORTS OF PAIN THIS SHIFT. PT REPOSTIONED THROUGH SHIFT. FALL PRECAUTIONS IN PLACE WILL CONTINUE WITH PLAN OF CARE.
[2021-03-24 08:00] VITALS: BP 115/74
[2021-03-24] MEDS ORDERED: XANAX 0.5 MG0.5 MG PO (11:25)
[2021-03-24] MEDS ORDERED: MACROBID 100 M100 M1 PO (11:25)
[2021-03-24] MEDS ORDERED: NYAMYC15 GM TOP (11:25)
[2021-03-24 12:09] VITALS: BP 137/68
--- NOTE | 2021-03-24 14:37 | NUR ---
PLAN OF CARE: PLAN FOR PT TO ADMIT TO INPT ARU TODAY. CM SPOKE TO THE PT'S DTR TO DISCUSS D/C PLANNING AND ABILITY TO ASSIST THE PT WITH CARES AT D/C IF NEEDED. PT'S DTR INFORMS THAT THE PT HAS CAREGIVERS AT HOME DURING THE DAY. PT'S DTR WORKS DURING THE DAY, BUT IS AVAILABLE TO ASSIST IN THE EVENING. CM WILL REMAIN AVAILABLE TO ASSIST AND FOLLOW NEEDED.
[2021-03-24 17:04] VITALS: BP 169/72
--- NOTE | 2021-03-24 19:04 | NUR ---
patient resting in bed. call light and personal belongings within reach. no complaints at this time. on room air, SLIV, fall risk. patient transferring to rehab unit, report to be given for night shift supervisor.
== END 2021-03-24 20:18 | DRG 689 ==
LOC: M.ERS 06:23 → M.2W 08:30 → M.TBA-ER 08:30 → M.2W 13:14
PROVIDERS: Family Medicine; ADMIT Family Medicine; ATTEND Family Medicine
DX: N30.00 Acute cystitis without hematuria (principal); G92 Toxic encephalopathy; M62.82 Rhabdomyolysis; I50.32 Chronic diastolic (congestive) heart failure; R65.10 Systemic inflammatory response syndrome (SIRS) of non-infectious origin without acute organ dysfunction; B96.20 Unspecified Escherichia coli [E. coli] as the cause of diseases classified elsewhere; I48.91 Unspecified atrial fibrillation; E87.6 Hypokalemia; I11.0 Hypertensive heart disease with heart failure; M19.90 Unspecified osteoarthritis, unspecified site; K57.90 Diverticulosis of intestine, part unspecified, without perforation or abscess without bleeding; Z20.822 Contact with and (suspected) exposure to COVID-19; Z90.49 Acquired absence of other specified parts of digestive tract; Z90.710 Acquired absence of both cervix and uterus; Z79.82 Long term (current) use of aspirin; Z79.01 Long term (current) use of anticoagulants; Z79.899 Other long term (current) drug therapy; Z88.8 Allergy status to other drugs, medicaments and biological substances

== ENCOUNTER 2021-03-24 14:30 | Inpatient (IN) | payer MEDICARE, MEDICAID ==
[~2021-03-24] VITALS: Ht 162.6 cm; Wt 78.9 kg
[~2021-03-24 14:30] MED LIST changes: +XANAX 0.5 MG0.5 MG PO
[2021-03-24 20:15] VITALS: BP 137/83
[2021-03-25 04:40] LABS: CALCIUM 8.8 mg/dL (8.5-10.1); CREATININE 0.6 mg/dL (0.6-1.3); POTASSIUM 3.6 mmol/L (3.5-5.1)
[2021-03-25 04:44] LABS: HEMATOCRIT 35.3 % (37.0-47.0); HEMOGLOBIN 11.1 gm/dL (12.0-15.0); MCH 25.9 pg (26.0-34.0); MCHC 31.3 g/dL (28.0-37.0); MCV 82.7 fL (80.0-100.0); RBC 4.27 mil/uL (4.20-5.00); WBC 11.6 thou/uL (4.0-11.0)
[2021-03-25 07:40] VITALS: BP 140/68
[2021-03-25 20:04] VITALS: BP 129/64
[2021-03-26 05:19] LABS: HEMATOCRIT 33.3 % (37.0-47.0); HEMOGLOBIN 10.7 gm/dL (12.0-15.0); MCH 26.6 pg (26.0-34.0); MPV 7.8 fl. (7.2-11.1); RBC 4.01 mil/uL (4.20-5.00); RDW-CV 17.4 % (10.5-14.5); WBC 8.1 thou/uL (4.0-11.0)
[2021-03-26 05:29] LABS: CALCIUM 8.5 mg/dL (8.5-10.1); CREATININE 0.6 mg/dL (0.6-1.3); POTASSIUM 3.2 mmol/L (3.5-5.1)
[2021-03-26 07:30] VITALS: BP 115/73
[2021-03-26 14:05] LABS: MAGNESIUM 1.8 mg/dL (1.8-2.4); PHOSPHORUS* 3.5 mg/dL (2.5-4.9)
[2021-03-26 19:00] VITALS: BP 130/70
[2021-03-27 08:07] VITALS: BP 150/59
[2021-03-27 20:08] VITALS: BP 150/74
[2021-03-28 08:20] VITALS: BP 112/65
[2021-03-28 19:45] VITALS: BP 187/64
[2021-03-29 07:30] VITALS: BP 177/80
[2021-03-29 11:56] LABS: ANION GAP 5 mmol/L (7-16); BUN 18 mg/dL (7-18); CALCIUM 8.7 mg/dL (8.5-10.1); CHLORIDE 106 mmol/L (98-107); CO2 29 mmol/L (21-32); CREATININE 0.6 mg/dL (0.6-1.3); GLUCOSE 95 mg/dL (70-99); NT-PRO BRAIN NAT PEPTIDE 1239 pg/mL (<300); POTASSIUM 3.4 mmol/L (3.5-5.1); SODIUM 140 mmol/L (136-145); TROPONIN-I LEVEL <0.06 ng/mL (<0.06)
[2021-03-29 20:15] VITALS: BP 109/79
[2021-03-30 08:12] VITALS: BP 158/65
--- NOTE | 2021-03-30 13:12 | CON ---
[address] [address] CONSULTATION Name: LESAKATRINLEONARDARachelALMA Room: [address] IN [facility]#: [id number] Admission: 03/24/21 Attend Phys: Piyush Hawkins MD Discharge: Date of : 34 Report #: [id number] THIS REPORT FOR: cc: [facility] - Clinic physician unknown [facility] - Clinic physician unknown Prasanna Dailey MD [facility] ~ DOC #: [id number] Prasanna Dailey MD [facility] DATE OF CONSULTATION: 03/29/2021 CARDIOLOGY CONSULTATION HISTORY OF PRESENT ILLNESS: The patient is an 89-year-old single white female who I was asked to seen in the hospital today because of atrial fibrillation. The history is obtained from the current chart. There are no family members available. The patient states that she has had atrial fibrillation for years. She apparently has never cardioverted. She has been chronically anticoagulated with Eliquis. She has had several hospitalizations here at [facility] in the past. She was admitted here in 2019 with pneumonia. She was noted to have atrial fibrillation at that time. She was admitted here in 03/2021 with a urinary tract infection. She apparently was weak and actually had fallen in the front yard. After she recovered, she was transferred to rehab 5 days ago. ECG today shows atrial fibrillation. Cardiology consultation requested. She notes occasional irregular heartbeat, but denies lightheadedness, syncope. Denies any chest pain or increased shortness of breath. PAST MEDICAL HISTORY: She has cholecystectomy, laparoscopy. She has a history of hypertension. CURRENT MEDICATIONS: Consist of Lasix, potassium, Eliquis, diltiazem CD 120 mg a day. ALLERGIES: SHE HAS A PREVIOUS INTOLERANCE TO IV CONTRAST. FAMILY HISTORY: Negative for heart disease. SOCIAL HISTORY: She is , lives in [place], [place]. Uses a walker. No smoking or alcohol abuse. REVIEW OF SYSTEMS: She is overweight. She has no history of stroke, asthma, liver disease, kidney disease, cancer, chronic skin condition. Does wear glasses. PHYSICAL EXAMINATION: GENERAL: Revealed an elderly female lying in bed. [place] [address] CONSULTATION Name: ALMA TERRY Room: [address]#: [id number] Admission: 03/24/21 Attend Phys: Piyush Hawkins MD Discharge: Date of : 34 Report #: [id number] VITAL SIGNS: She has a blood pressure of 140/70, pulse is 90. She is afebrile. HEENT: She was anicteric. Conjunctivae pale. Mucous membranes are dry. NECK: Veins not appear distended. CHEST: Clear to auscultation. HEART: Irregular rhythm, no significant murmur. ABDOMEN: Obese. EXTREMITIES: No pitting edema. Dorsalis pedis pulse cannot be palpated. SKIN: Cool and dry. NEUROLOGIC: Nonfocal. IMAGING: ECG today shows atrial fibrillation, controlled ventricular response rate, nonspecific ST- and T-wave changes were noted. Her workup, she actually had an echocardiogram in 2019 that showed ejection fraction of 60%, biatrial enlargement, aortic sclerosis, mild tricuspid insufficiency with moderate pulmonary hypertension. X-ray: She had a chest x-ray when she was admitted 10 days ago that showed cardiomegaly, otherwise clear lung hdz. CT scan of the head performed without contrast showed small vessel changes, but no acute abnormalities. LABORATORY WORK: Sodium 138, creatinine 0.6. Liver function studies were normal. Troponin less than 0.06. White blood cell count 8.1, hemoglobin initially was 12.8. IMPRESSION AND RECOMMENDATIONS: 1. Permanent atrial fibrillation. Rate controlled with calcium tracy. I will continue chronic anticoagulation with Eliquis. Recommend no further cardiac evaluation. 2. Hypertension. The patient is on a calcium tracy. 3. History of reaction to IV contrast. 4. Degenerative joint disease. 5. Obesity. Prasanna Dailey MD [facility] HOLLY/CHIN <ELECTRONICALLY SIGNED> By: Prasanna Dailey MD, [facility] 03/30/21 1312 1012 1131Dbobby Dailey MD, [facility] /nt
[2021-03-30 20:12] VITALS: BP 112/54
[2021-03-30 20:14] VITALS: BP 127/79
[2021-03-31 07:45] VITALS: BP 132/69
--- NOTE | 2021-03-31 10:17 | EKG ---
[place] [address] ELECTROCARDIOGRAM REPORT Name: ALMA TERRY Stef Room: [address] ADM IN [facility].#: [id number] Admission: 03/24/21 Attend Phys: Piyush Hawkins MD Discharge: Date of : 34 Date of Service: 03/29/21 0753 Report #: [id number] THIS REPORT FOR: //name// [facility] Test Date: 2021-03-29 Test Time: 07:53:12 Pat Name: ALMA TERRY Department: Room: [address] Gender: F Mobile Unit Assistant: Antoine Grullon : 1930 Requested By: Piyush Hawkins Order Number: [id number] MD: Prasanna Dailey Measurements Intervals [place] Rate: 66 P: [place]: QRS: 5 QRSD: 69 T: 4 QT: 503 QTc: 528 Interpretive Statements Atrial fibrillation Borderline low voltage, extremity leads Minimal ST depression, anterolateral leads Prolonged QT interval Compared to ECG 03/18/2021 06:35:41 Prolonged QT interval now present Electronically Signed On 03-31-2021 10:16:45 CDT by Prasanna Dailey [email or web address] <ELECTRONICALLY SIGNED> By: Prasanna Dailey MD, FACC 03/31/21 1016 0753 0753 Prasanna Dailey MD, [facility] /EPI
[2021-03-31 20:00] VITALS: BP 99/73
[2021-04-01 07:30] VITALS: BP 122/65
[2021-04-01 19:00] VITALS: BP 125/75
[2021-04-02 04:47] LABS: HEMATOCRIT 34.1 % (37.0-47.0); HEMOGLOBIN 10.7 gm/dL (12.0-15.0); MCH 26.2 pg (26.0-34.0); MCHC 31.3 g/dL (28.0-37.0); MCV 83.9 fL (80.0-100.0); MPV 7.7 fl. (7.2-11.1); RBC 4.06 mil/uL (4.20-5.00); RDW-CV 17.8 % (10.5-14.5); WBC 8.3 thou/uL (4.0-11.0)
[2021-04-02 05:12] LABS: CREATININE 0.7 mg/dL (0.6-1.3); POTASSIUM 3.6 mmol/L (3.5-5.1)
[2021-04-02 07:30] VITALS: BP 157/67
[2021-04-02 20:13] VITALS: BP 169/73
[2021-04-03 07:30] VITALS: BP 104/66
[2021-04-03 19:58] VITALS: BP 157/68
[2021-04-04 07:30] VITALS: BP 123/72
[2021-04-04 20:00] VITALS: BP 163/44
[2021-04-05 04:19] LABS: HEMOGLOBIN 10.7 gm/dL (12.0-15.0); MCH 26.1 pg (26.0-34.0); MCHC 31.5 g/dL (28.0-37.0); MCV 82.9 fL (80.0-100.0); MPV 7.8 fl. (7.2-11.1); RBC 4.1 mil/uL (4.20-5.00); RDW-CV 17.5 % (10.5-14.5); WBC 8.2 thou/uL (4.0-11.0)
[2021-04-05 04:46] LABS: CALCIUM 8.9 mg/dL (8.5-10.1); CREATININE 0.7 mg/dL (0.6-1.3); MAGNESIUM 1.8 mg/dL (1.8-2.4); POTASSIUM 3.4 mmol/L (3.5-5.1)
[2021-04-05 07:30] VITALS: BP 129/76
[2021-04-05 19:00] VITALS: BP 130/71
[2021-04-06 07:04] LABS: HEMATOCRIT 35.2 % (37.0-47.0); HEMOGLOBIN 11.1 gm/dL (12.0-15.0); MCH 26.5 pg (26.0-34.0); MCHC 31.6 g/dL (28.0-37.0); MCV 83.9 fL (80.0-100.0); MPV 8.1 fl. (7.2-11.1); RBC 4.19 mil/uL (4.20-5.00); RDW-CV 17.5 % (10.5-14.5); WBC 7.2 thou/uL (4.0-11.0)
[2021-04-06 07:15] LABS: ALBUMIN 2.9 g/dL (3.4-5.0); CALCIUM 8.6 mg/dL (8.5-10.1); CREATININE 0.7 mg/dL (0.6-1.3); POTASSIUM 3.4 mmol/L (3.5-5.1); TOTAL BILIRUBIN 0.6 mg/dL (<0.1-1.0); TOTAL PROTEIN 6.7 g/dL (6.4-8.2)
[2021-04-06 07:24] LABS: MAGNESIUM 1.8 mg/dL (1.8-2.4)
[2021-04-06 07:30] VITALS: BP 149/77
[2021-04-06 19:55] VITALS: BP 168/65
[2021-04-07 07:30] VITALS: BP 125/82
[2021-04-07 19:00] VITALS: BP 127/77
[2021-04-08 08:22] VITALS: BP 129/77
[2021-04-08 19:00] VITALS: BP 131/77
[2021-04-09 05:24] LABS: HEMATOCRIT 33.5 % (37.0-47.0); HEMOGLOBIN 10.5 gm/dL (12.0-15.0); MCH 26.4 pg (26.0-34.0); MCHC 31.5 g/dL (28.0-37.0); MCV 83.7 fL (80.0-100.0); MPV 8.3 fl. (7.2-11.1); RDW-CV 17.4 % (10.5-14.5); WBC 8.5 thou/uL (4.0-11.0)
[2021-04-09 05:55] LABS: CALCIUM 8.5 mg/dL (8.5-10.1); CREATININE 0.7 mg/dL (0.6-1.3); POTASSIUM 3.1 mmol/L (3.5-5.1)
[2021-04-09 08:00] VITALS: BP 138/63
[2021-04-09 19:00] VITALS: BP 155/72
[2021-04-10 20:04] VITALS: BP 156/52
[2021-04-11 08:28] VITALS: BP 121/76
[2021-04-11 12:35] LABS: URINE BILIRUBIN NEGATIVE (Negative); URINE BLOOD TRACE (Negative); URINE CLARITY CLEAR; URINE COLOR YELLOW; URINE GLUCOSE-RANDOM NEGATIVE (Negative); URINE KETONES NEGATIVE (Negative); URINE LEUKOCYTES NEGATIVE (Negative); URINE NITRITE NEGATIVE (Negative); URINE PROTEIN NEGATIVE (Negative); URINE UROBILINOGEN 0.2 E.U./dl (0.2-1.0)
[2021-04-11 20:18] VITALS: BP 160/52
[2021-04-12 08:00] VITALS: BP 104/44; BP 104/69; BP 122/69; BP 128/52; BP 132/84
[2021-04-12 08:44] VITALS: BP 122/69
[2021-04-12] MEDS ORDERED: PAXIL 20 MG TAB20 M1 PO (10:51)
[2021-04-12] MEDS ORDERED: LASIX 20 MG TAB20 MG PO (10:51)
[2021-04-12] MEDS ORDERED: LASIX 40 MG TAB40 M2 PO (10:51)
== END 2021-04-12 15:57 | DRG 948 ==
LOC: M.REH 14:30
PROVIDERS: Family Medicine; Internal Medicine; ADMIT Physical Medicine & Rehabilitation; ATTEND Physical Medicine & Rehabilitation
DX: R53.81 Other malaise (principal); N39.0 Urinary tract infection, site not specified; I50.32 Chronic diastolic (congestive) heart failure; I48.21 Permanent atrial fibrillation; M62.82 Rhabdomyolysis; B96.20 Unspecified Escherichia coli [E. coli] as the cause of diseases classified elsewhere; R55 Syncope and collapse; I11.0 Hypertensive heart disease with heart failure; M19.211 Secondary osteoarthritis, right shoulder; E66.9 Obesity, unspecified; K57.90 Diverticulosis of intestine, part unspecified, without perforation or abscess without bleeding; F32.9 Major depressive disorder, single episode, unspecified; I95.9 Hypotension, unspecified; E87.6 Hypokalemia; Z90.49 Acquired absence of other specified parts of digestive tract; Z79.01 Long term (current) use of anticoagulants; Z79.899 Other long term (current) drug therapy; Z91.041 Radiographic dye allergy status; Z68.29 Body mass index [BMI] 29.0-29.9, adult; Z90.710 Acquired absence of both cervix and uterus

== ENCOUNTER → 2021-11-10 | Outpatient (CLI) | payer MEDICARE, MEDICAID ==
[~2021-11-10] MED LIST changes: +LASIX 40 MG TAB40 M2 PO; +PAXIL 20 MG TAB20 M1 PO
--- NOTE | 2021-11-10 15:30 | 2DMMODE ---
[place] [address] 2 D/M-MODE ECHOCARDIOGRAM Name: ALMA TERRY Room: [facility]#: [id number] Admission: 11/10/21 Attend Phys: Abigail Mejia RN Discharge: Date of : 34 Date of Service: 11/10/21 1529 Report #: [id number] THIS REPORT FOR: cc: Elvis Velez MD, Srinath MD Holkins,Jay Taylor MD [facility] ~ APPROVED REPORT Study performed: 11/10/2021 15:03:55 EXAM: Comprehensive 2D, Doppler, and color-flow Echocardiogram Patient Location: Out-Patient BSA: 2.00 HR: 65 bpm BP: 130/90 mmHg Other Information Study Quality: Good Technically limited study due to inability to position patient. Indications Edema 2D Dimensions IVSd: 12.31 (7-11mm) LVOT Diam: 20.96 (18-24mm) LVDd: 43.68 mm PWd: 10.37 (7-11mm) Ascending Ao: 40.57 (22-36mm) LVDs: 32.74 (25-40mm) Aortic Root: 28.89 mm Volumes Left Atrial Volume (Systole) LA ESV Index: 47.90 mL/m2 Aortic Valve AoV Peak Dae.: 1.47 m/s AO Peak Gr.: 8.60 mmHg LVOT Max P.77 mmHg AO Mean Gr.: 5.05 mmHg LVOT Mean P.91 mmHg LVOT Max V: 0.66 m/s AO V2 VTI: 29.54 cm LVOT Mean V: 0.44 m/s DALIA (VTI): 1.52 cm2 LVOT V1 VTI: 13.01 [place] [address] 2 D/M-MODE ECHOCARDIOGRAM Name: ALMA TERRY Room: [facility]#: [id number] Admission: 11/10/21 Attend Phys: Abigail Mejia RN Discharge: Date of : 34 Date of Service: 11/10/21 1529 Report #: [id number] Mitral Valve E/A Ratio: 3.23 MV Decel. Time: 137.33 ms MV E Max Dae.: 0.95 m/s MV PHT: 39.82 ms MVA (PHT): 5.52 cm2 TDI E/Lateral E': 7.92 E/Medial E': 7.92 Medial E' Dae.: 0.12 m/s Lateral E' Dae.: 0.12 m/s Pulmonary Valve PV Peak Dae.: 0.86 m/s PV Peak Gr.: 2.97 mmHg Tricuspid Valve RAP Estimate: 20.00 mmHg TR Peak Gr.: 50.95 mmHg RVSP: 70.95 mmHg PA Pressure: 70.95 mmHg Left Ventricle The left ventricle is normal size. There is normal LV segmental wall motion. There is normal left ventricular wall thickness. Left ventricular systolic function is normal. The left ventricular ejection fraction is within the normal range. LVEF is 55%. This study is not technically sufficient to allow evaluation of the LV diastolic function due to atrial fibrillation. Right Ventricle The right ventricle is normal size. The right ventricular systolic function is normal. Atria Left atrium is moderately dilated. The atrial septum is aneurysmal. Right atrium is moderately dilated. Aortic Valve Moderate aortic valve sclerosis. No aortic regurgitation is present. No hemodynamically significant valvular aortic stenosis. Mitral Valve There is mitral annular calcification. Trace mitral regurgitation. No evidence of mitral valve stenosis. Tricuspid Valve The tricuspid valve is normal in structure[place] [address] 2 D/M-MODE ECHOCARDIOGRAM Name: ALMA TERRY Room: [facility]#: [id number] Admission: 11/10/21 Attend Phys: Abigail Mejia RN Discharge: Date of : 34 Date of Service: 11/10/21 1529 Report #: [id number] tricuspid regurgitation. Pulmonic Valve Pulmonic valve is not well visualized. Trace to mild pulmonic regurgitation. Great Vessels The aortic root is normal in size. The ascending aorta is mildly dilated. IVC is dilated and collapses >50% with inspiration. Pericardium There is no pericardial effusion. <Conclusion> The left ventricle is normal size. There is normal left ventricular wall thickness. Left ventricular systolic function is normal. The left ventricular ejection fraction is within the normal range. LVEF is 55%. This study is not technically sufficient to allow evaluation of the LV diastolic function due to atrial fibrillation. The right ventricle is normal size. The right ventricular systolic function is normal. Left atrium is moderately dilated. Right atrium is moderately dilated. Moderate aortic valve sclerosis. No aortic regurgitation is present. No hemodynamically significant valvular aortic stenosis. There is mitral annular calcification. Trace mitral regurgitation. No evidence of mitral valve stenosis. The tricuspid valve is normal in structure. Mild to moderate tricuspid regurgitation. IVC is dilated and collapses >50% with inspiration. There is no pericardial effusion. There is normal LV segmental wall motion. The atrial septum is aneurysmal. <ELECTRONICALLY SIGNED> By: Jay Hopkins MD, FACC 11/10/21 1529 1529 1529 Jay Hopkins MD, FACC /INF
== END ==
LOC: M.CRD 13:42
PROVIDERS: ATTEND Registered Nurse
DX: I08.8 Other rheumatic multiple valve diseases (principal); I77.810 Thoracic aortic ectasia; R60.0 Localized edema

== ENCOUNTER 2021-11-17 15:22 | Inpatient (IN) | payer MEDICARE, MEDICAID ==
[~2021-11-17] VITALS: Ht 172.7 cm; Wt 117.9 kg
[2021-11-17 15:34] VITALS: BP 162/71
[2021-11-17] MEDS ORDERED: ASPIR-TRIN325 MG PO (15:41)
[2021-11-17] MEDS ORDERED: APAP650 PO (15:41)
[2021-11-17] MEDS ORDERED: REMERON15 M1 PO (15:42)
[2021-11-17] MEDS ORDERED: ONDANSETRON HCL4 M2 PO (15:42)
--- NOTE | 2021-11-17 15:47 | EKG ---
[place] [address] ELECTROCARDIOGRAM REPORT Name: ALMA TERRY Room: [facility]#: [id number] Admission: Attend Phys: Discharge: Date of : 34 Date of Service: 11/17/21 1538 Report #: [id number] THIS REPORT FOR: //name// [facility] ED Test Date: 2021-11-17 Test Time: 15:38:51 Pat Name: ALMA MCFADDENKATRINDEBI Department: Room: Gender: F Tip Mender: : 1930 Requested By: Jose De Jesus Tuttle Order Number: [id number] MD: Prasanna Dailey Measurements Intervals [place] Rate: 71 P: LA: QRS: -2 QRSD: 97 T: 138 QT: 381 QTc: 414 Interpretive Statements Atrial fibrillation RSR' in V1 or V2, right VCD or RVH Nonspecific repol abnormality, diffuse leads Baseline wander in lead(s) V4 Compared to ECG 03/29/2021 07:53:12 Prolonged QT interval no longer present Electronically Signed On 11-17-2021 15:47:29 APPLIQUE CUTTER by Prasanna Dailey [email or web address] <ELECTRONICALLY SIGNED> By: Prasanna Dailey MD, FAC 11/17/21 1547 1538 1538 Prasanna Dailey MD, FAC /EPI
[2021-11-17 15:56] LABS: ABSOLUTE BASOPHILS 0.1 thou/uL (0.0-0.2); ABSOLUTE EOSINOPHILS 0.1 thou/uL (0.0-0.7); ABSOLUTE LYMPHOCYTES 1.1 thou/uL (0.8-5.3); ABSOLUTE NEUTROPHILS 9.1 thou/uL (1.6-8.1); BASOPHILS 0.6 %; EOSINOPHILS 0.5 %; HEMATOCRIT 33.7 % (37.0-47.0); HEMOGLOBIN 10.3 gm/dL (12.0-15.0); LYMPHOCYTES 10.1 %; MCH 24.2 pg (26.0-34.0); MCHC 30.6 g/dL (28.0-37.0); MCV 78.8 fL (80.0-100.0); MONOCYTES 9.2 %; NUCLEATED RBCS 0 /100WBC; PLATELET COUNT* 419 thou/uL (150-400); POLYS 79.6 %; RBC 4.27 mil/uL (4.20-5.00); RDW-CV 17.8 % (10.5-14.5); WBC 11.4 thou/uL (4.0-11.0)
[2021-11-17 16:03] LABS: CALCIUM 8.5 mg/dL (8.5-10.1); POTASSIUM 3.1 mmol/L (3.5-5.1)
[2021-11-17 16:14] LABS: ALBUMIN 2.7 g/dL (3.4-5.0); TOTAL BILIRUBIN 0.6 mg/dL (<0.1-1.0); TOTAL PROTEIN 7.4 g/dL (6.4-8.2)
[2021-11-17 21:00] VITALS: BP 162/74
[2021-11-17 21:35] LABS: URINE BILIRUBIN NEGATIVE (Negative); URINE BLOOD NEGATIVE (Negative); URINE CLARITY CLEAR; URINE COLOR YELLOW; URINE GLUCOSE-RANDOM NEGATIVE (Negative); URINE KETONES NEGATIVE (Negative); URINE LEUKOCYTES-REFLEX 1+ (Negative); URINE PROTEIN 2+ (Negative); URINE SPECIFIC GRAVITY 1.015 (1.005-1.030)
[2021-11-17 21:47] LABS: URINE NITRITE-REFLEX POSITIVE (Negative)
[2021-11-17 22:31] LABS: CASTS None Seen /LPF (None Seen); SQUAMOUS >10 Many /LPF (0-3)
[2021-11-17 22:32] LABS: BACTERIA-REFLEX >30 Many /HPF (None Seen); CRYSTALS None Seen /LPF (None Seen); URINE RBC 0-2 Rare /HPF (0-2); URINE WBC-REFLEX >25 Many /HPF (0-5)
--- NOTE | 2021-11-17 23:00 | NUR ---
PAGED ONCALL PROVIDER DR DESAI FOR ORDERS REGARDING PATIENT CARE, AWAITING RESPONSE
[2021-11-18] VITALS (7 sets, daily range): BP systolic 149–178; BP diastolic 69–88
--- NOTE | 2021-11-18 00:53 | NUR ---
DR DESAI UPDATED ON K+ AND UA RESULTS, NEW ORDERS RECEIVED.
--- NOTE | 2021-11-18 08:48 | NUR ---
PT GIVEN BREAKFAST.
--- NOTE | 2021-11-18 16:26 | NUR ---
CM ASSESSMENT ASSESSMENT COMPLETED WITH PT AND DAUGHTER (BROWN VALENTINE [phone]). PT LIVES AT [facility] AND HOPES TO RETURN UPON DC ([facility] CONFIRMED PT CAN RETURN). PT USES A WHEELCHAIR AND ADLS ARE COMPLETED BY [facility] STAFF. PT HAS BEEN TO SKILLED AT [facility] IN 01/2021 AND PREVIOUSLY HAD HH WITH UNKNOWN AGENCY. PT UPDATED DPOA FORM AND LISTED BROWN VALENTINE DPOA AGENT.
[2021-11-19 00:29] VITALS: BP 180/75
[2021-11-19 04:24] VITALS: BP 172/70
[2021-11-19 06:01] LABS: ALBUMIN 2.6 g/dL (3.4-5.0); ALKALINE PHOSPHATASE 143 U/L (46-116); ANION GAP 10 mmol/L (7-16); BUN 13 mg/dL (7-18); CALCIUM 8.5 mg/dL (8.5-10.1); CHLORIDE 102 mmol/L (98-107); CHOLESTEROL 150 mg/dL (<200); CO2 31 mmol/L (21-32); CREATININE 0.9 mg/dL (0.6-1.3); GLUCOSE 79 mg/dL (70-99); HDL CHOLESTEROL 49 mg/dL (>40); LDL CHOLESTEROL 87 mg/dL (<100); SGOT 25 U/L (15-37); SGPT 13 U/L (30-65); SODIUM 143 mmol/L (136-145); TC:HDL 3.1 Ratio (Not establshd); TOTAL BILIRUBIN 0.5 mg/dL (<0.1-1.0); TOTAL PROTEIN 7.4 g/dL (6.4-8.2); TRIGLYCERIDE 70 mg/dL (<150); VLDL 14 mg/dL (<40)
[2021-11-19 06:05] LABS: POTASSIUM 2.5 mmol/L (3.5-5.1)
--- NOTE | 2021-11-19 06:36 | NUR ---
PATIENT ARRIVED ON FLOOR FROM ER ABOUT 2029. PATIENT ADMISSION HISTORY AND ASSESSMENT WAS COMPLETED CHARTED. PATIENT HAS AN NIH OF 12 WITH LEFT HEMIPARESIS. WILL CONTINUE TO MONITOR.
[2021-11-19 07:57] LABS: SERUM ASSESSMENT Clear
[2021-11-19 08:00] VITALS: BP 144/90
[2021-11-19 12:05] VITALS: BP 152/90
--- NOTE | 2021-11-19 12:48 | CON ---
[address] [address] CONSULTATION Name: LESAKATRINLEONARDARachelALMA Room: [address] IN [facility]#: [id number] Admission: 11/17/21 Attend Phys: Rachel Porter Discharge: Date of : 34 Report #: [id number] THIS REPORT FOR: cc: Elvis Velez MD, Srinath MD Blick,Prasanna Sebastian MD [facility] ~ cc: Guy Thompson MD DATE OF CONSULTATION: 11/19/2021 CARDIOLOGY CONSULTATION HISTORY OF PRESENT ILLNESS: The patient is an 89-year-old single white female who I was asked to see in the hospital today after she was noted to be in atrial fibrillation. The history was obtained from the old records. Unfortunately, the patient has memory loss. She is not very active this time and uses a walker. She continues to live by herself. She has a history of persistent atrial fibrillation, apparently has never been cardioverted. She previously was chronically anticoagulated with Eliquis. The rate of atrial fibrillation had been controlled in the past. I actually saw her in the hospital last year. She was sent home after undergoing rehabilitation. She was discharged to a custodial facility. Previous echocardiogram showed normal left ventricular function. She actually saw my nurse practitioner in the office 2 weeks ago. She was told to follow up in Cardiology Clinic, but was having no complaints at that time. She does have chronic lower extremity edema. She has a history of confusion. However, she denies any recent chest pain, shortness of breath, palpitations, syncope. She has fallen recently. She was last admitted here to [facility] in March. She was brought to the Emergency Room by ambulance yesterday. She had some lower extremity edema. She felt weak. When she got here, she was noted to have left-sided weakness. She was transferred from the intermediate. She was felt to have had a stroke. Cardiology consultation was requested. PAST MEDICAL HISTORY: She has had previous appendectomy. She has a history of hypertension. CURRENT MEDICATIONS: Include aspirin, Remeron, Protonix, diltiazem CD 120 mg a day, Lasix. She is no longer on Eliquis. ALLERGIES: SHE HAD A PREVIOUS INTOLERANCE TO IODINE. FAMILY HISTORY: Negative for heart disease. SOCIAL HISTORY: She is , lives in a long-term care facility[place] [address] CONSULTATION Name: ALMA TERRY Room: [address]#: [id number] Admission: 11/17/21 Attend Phys: Rachel Porter Discharge: Date of : 34 Report #: [id number] REVIEW OF SYSTEMS: She has had no previous history of stroke, asthma, liver disease, kidney disease, cancer, psychiatric illness, chronic skin condition. PHYSICAL EXAMINATION: GENERAL: Revealed an elderly, frail-appearing female, lying in bed. She appeared in no distress. VITAL SIGNS: She had a blood pressure of 170/80, pulse is 80 and irregular. She is afebrile. HEENT: She was anicteric. Conjunctivae pink. Mucous membranes are dry. NECK: Veins do not appear distended. CHEST: Clear to auscultation. CARDIAC: Irregular rhythm, no significant murmur. ABDOMEN: Soft. EXTREMITIES: Had trace edema. SKIN: Cool and dry. NEUROLOGIC: She had left-sided hemiplegia. PSYCHIATRIC: Mood appears appropriate. She was oriented to place and person. IMAGING DATA: Her ECG showed atrial fibrillation with controlled ventricular response rate, septal Q-waves. The patient actually had an echocardiogram performed here at [facility] as an outpatient 2 weeks ago that showed ejection fraction 55%, biatrial enlargement, aortic sclerosis, trace mitral regurgitation. She actually had a CT scan of the head performed 2 days ago because confusion that showed no acute abnormality, atrophy was noted. Her chest x-ray from 2 days ago showed cardiomegaly, mild pulmonary vascular congestion, atelectasis, degenerative joint disease. LABORATORY DATA: Current potassium is only 2.5, creatinine 0.9. Liver function studies were normal. Albumin 2.6. High sensitivity troponin was 14. BNP 2375, LDL was 87. Her hemoglobin was 10.3, it was actually 7.9 in 2019. Her COVID antigen stat test was negative. Urinalysis was negative for blood, many wbc's, many bacteria. IMPRESSION AND RECOMMENDATIONS: 1. Atrial fibrillation. Rate controlled with a calcium tracy. I would not recommend attempts at cardioversion. 2. Stroke. Suspect secondary to atrial fibrillation. The patient was not felt to be a candidate for anticoagulation in the past because of advanced age and history of falls. I would recommend resuming Eliquis when it is felt to be safe from a neurologic standpoint. 3. Hypertension. The patient is on a calcium tracy. 4. Lower extremity edema. Suspect venous insufficiency. The patient is on Lasix. [address] [address] CONSULTATION Name: ALMA TERRY Room: [address] IN [facility].#: [id number] Admission: 11/17/21 Attend Phys: Rachel Porter Discharge: Date of : 34 Report #: [id number] 5. Hypokalemia. Recommend replacement. 6. Dementia. <ELECTRONICALLY SIGNED> By: Prasanna Dailey MD, FACC 11/19/21 1248 0847 [id number] Dailey MD, FACC /nt
--- NOTE | 2021-11-19 12:55 | NUR ---
Nutrition: Consult received for "stroke." Pt admitted with CVA. Pt said she usually weighs ~180# but she wasn't too sure. Per [place], usual wt ranges 140-180#. I weighed her in bed today for a wt of 160#. Alb 2.6, prealb 11.3. We talked briefly about healthy diet. She said she gets her food from "[employer]." She doesn't have many healthy options from there, a lot of packaged foods. She doesn't take vitamins or supplements. She does like fresh fruits and veg when she can get them. We briefly discussed antiimflammatory foods like on Mediterranean diet. She is limited on her food choices. She has a good appetite. PMHx: afib, HTN, GERD. Consider mild risk at this time.
--- NOTE | 2021-11-19 12:57 | 2DMMODE ---
[place] [address] 2 D/M-MODE ECHOCARDIOGRAM Name: ALMA TERRY Room: [address] IN .R.#: [id number] Admission: 11/17/21 Attend Phys: Ian Hernandez Discharge: Date of : 34 Date of Service: 11/19/21 1256 Report #: [id number] THIS REPORT FOR: cc: Elvis Velez MD, Srinath MD Blick,Prasanna Sebastian MD [facility] ~ APPROVED REPORT Study performed: 11/19/2021 11:21:17 EXAM: Limited 2D, Doppler, and color-flow Echocardiogram BSA: 2.28 HR: 89 bpm BP: 144/90 mmHg Other Information Study Quality: Adequate Indications Congestive Heart Failure CVA/TIA Echo Enhancing Agent Indication: Rule out Shunt Agent(s) / Amount(s) Used: Agitated Saline 6 cc 2D Dimensions IVSd: 13.50 (7-11mm) LVOT Diam: 19.06 (18-24mm) LVDd: 31.49 mm PWd: 14.42 (7-11mm) Ascending Ao: 42.62 (22-36mm) LVDs: 26.87 (25-40mm) Aortic Root: 27.91 mm Tricuspid Valve RAP Estimate: 5.00 mmHg TR Peak Gr.: 42.28 mmHg RVSP: 47.28 mmHg PA Pressure: 47.28 mmHg Left Ventricle The left ventricle is normal size. There is normal LV segmental wall motion. Mild concentric left ventricular hypertrophy. The left ventricular systolic function is normal. The left ventricular ejection fraction is within the normal range. LVEF is 50-55%. [place] [address] 2 D/M-MODE ECHOCARDIOGRAM Name: ALMA TERRY Room: [address] IN ..#: [id number] Admission: 11/17/21 Attend Phys: Ian Hernandez Discharge: Date of : 34 Date of Service: 11/19/21 1256 Report #: [id number] Right Ventricle Right ventricle is mildly dilated. The right ventricular systolic function is normal. Atria Left atrium is mildly dilated. Injection of bubbles documented no interatrial shunt. The right atrium size is normal. Aortic Valve The Aortic valve is sclerotic. Mitral Valve The mitral valve is normal in structure. Trace mitral regurgitation. No evidence of mitral valve stenosis. Tricuspid Valve The tricuspid valve is normal in structure. Trace tricuspid regurgitation. There is mild pulmonary hypertension. Pulmonic Valve Pulmonic valve is not well visualized. Great Vessels The aortic root is normal in size. The ascending aorta is mildly dilated. Pericardium Mild pericardial effusion. <Conclusion> Mild concentric left ventricular hypertrophy. LVEF is 50-55%. Right ventricle is mildly dilated. Left atrium is mildly dilated. The Aortic valve is sclerotic. Injection of bubbles documented no interatrial shunt. <ELECTRONICALLY SIGNED> By: Prasanna Dailey MD, FACC 11/19/21 1256 1256 1256 Prasanna Dailey MD, FACC /INF
[2021-11-19 16:00] VITALS: BP 138/75
[2021-11-19 20:00] VITALS: BP 150/72
[2021-11-20] VITALS: BP 133/75
[2021-11-20 02:06] LABS: GLYCOHEMOGLOBIN (HGB A1C) 5.6 % (4.8-5.6)
[2021-11-20 04:00] VITALS: BP 129/70
[2021-11-20 04:36] LABS: HEMATOCRIT 36.2 % (37.0-47.0); HEMOGLOBIN 11.2 gm/dL (12.0-15.0); MCH 23.9 pg (26.0-34.0); MCV 77.1 fL (80.0-100.0); MPV 7.4 fl. (7.2-11.1); RBC 4.7 mil/uL (4.20-5.00); RDW-CV 17.9 % (10.5-14.5)
[2021-11-20 04:38] LABS: CALCIUM 8.1 mg/dL (8.5-10.1)
[2021-11-20 04:54] LABS: POTASSIUM 2.9 mmol/L (3.5-5.1)
[2021-11-20 09:12] VITALS: BP 189/100
[2021-11-20 11:45] VITALS: BP 150/61
--- NOTE | 2021-11-20 14:11 | NUR ---
ASSUMED PT CARE AT 0730. PT IS ALERT AND ORIENTED X2 AND CONVERSTIONAL. PT RESPONDS READILY. ASSESSMENT COMPLETED. MEDICATIONS ADMINISTERED ORDERED. SAFETY MEASURES IN PLACE AND ROUNDING COMPLETED PER PROTOCOL. PT VOICES NO CONCERNS OR DISCOMFORT AT THIS TIME. PT FEEDS SELF.
[2021-11-20 15:56] VITALS: BP 152/75
[2021-11-20 20:00] VITALS: BP 150/66
[2021-11-21 04:00] VITALS: BP 157/84
[2021-11-21 08:00] VITALS: BP 151/80
--- NOTE | 2021-11-21 16:31 | NUR ---
PLAN OF CARE: CM SPOKE TO ADMISSIONS AT [facility] AND THEY ARE ABLE TO ACCEPT THE PT OVER THE WEEKEND. CM WILL REMAIN AVAILABLE TO ASSIST AND FOLLOW NEEDED.
--- NOTE | 2021-11-21 16:52 | NUR ---
ASSUMED PT CARE AT 0740. PT IS PLEASANTLY A&O X2-3. LITTLE FORGETFUL. ASSESSMENT COMPLETED AND PT DENIES ANY PAIN OR DISCOMFORT. DRESSING CHANGE DONE TO SKINTEAR ON R SAEED. STERI STRIPS INTACT TO L FOREARM. MEDICATIONS ADMINISTERED ORDERED. PT REPOSTIONED Q2H. SAFETY MEASURES IN PLACE. PT FEEDING SELF WELL WITH SET UP. INCONTINENT OF B&B. PERICARE GIVEN AFTER EACH EPISODE OF INCONTINENCE.
[2021-11-21 18:26] VITALS: BP 165/72
[2021-11-21 20:00] VITALS: BP 170/78
[2021-11-22] VITALS: BP 165/75
[2021-11-22 04:00] VITALS: BP 132/62
--- NOTE | 2021-11-22 06:05 | NUR ---
PATIENT SLEPT WELL. PT ALERT/ORIENTED X4, ABLE TO MAKE NEEDS KNOWN. PT INCONTINENT OF BOWEL/BLADDER. PT TAKES PILLS WHOLE IN APPLESAUCE SITTING UPRIGHT IN BED. SMALL SIPS OF WATER AFTERWARDS. PT DENIES PAIN/NAUSEA. PT TURNED Q2H PER PROTOCAL. PT AFIB ON CIVIL ENGINEERING MANAGER. FREQUENTLY USED ITEMS AND CALL LIGHT WITHIN REACH. SIDERAILS UPX3 AND BED ALARM ON. WILL CONTINUE TO MONITOR.
--- NOTE | 2021-11-22 07:20 | NUR ---
CHANGE OF SHIFT REPORT GIVEN PATIENT SEEN AT BEDSIDE, IN BED ASLEEP ASSUMED PATIENT CARE
[2021-11-22 08:00] VITALS: BP 133/75
[2021-11-22 12:03] VITALS: BP 91/71
--- NOTE | 2021-11-22 13:20 | NUR ---
PLAN FOR THE PT TO D/C TODAY BACK TO HER LTC AT [facility] PENDING D/C ORDERS. CM INFORMED ADMISSIONS WITH [facility] OF THIS AND THEY ARE ABLE TO ACCEPT THE PT TODAY PENDING D/C ORDERS. RN INFORMED OF WHERE TO CALL REPORT. CM TO ARRANGE [facility]ERG[facility]. CM WILL REMAIN AVAILABLE TO ASSIST AND FOLLOW NEEDED. [facility] PHONE: [phone] FAX: [phone]
[2021-11-22] MEDS ORDERED: ELIQUIS5 MG PO (13:35)
[2021-11-22] MEDS ORDERED: ATORVASTATIN CA20 MG PO (13:35)
[2021-11-22 13:47] LABS: ABSOLUTE LYMPHOCYTES 1.9 thou/uL (0.8-5.3); ABSOLUTE MONOCYTES 0.6 thou/uL (0.0-1.2); ABSOLUTE NEUTROPHILS 2.1 thou/uL (1.6-8.1); BASOPHILS 0.8 %; EOSINOPHILS 0.4 %; HEMATOCRIT 34.6 % (37.0-47.0); HEMOGLOBIN 10.4 gm/dL (12.0-15.0); MCH 23.8 pg (26.0-34.0); MCHC 30.2 g/dL (28.0-37.0); MONOCYTES 13.7 %; MPV 7.8 fl. (7.2-11.1); NUCLEATED RBCS 0 /100WBC; POLYS 45.1 %; RBC 4.38 mil/uL (4.20-5.00); WBC 4.6 thou/uL (4.0-11.0)
[2021-11-22 13:51] LABS: PLATELET COUNT* 206 thou/uL (150-400)
[2021-11-22 14:02] LABS: ALBUMIN 2.1 g/dL (3.4-5.0); CALCIUM 7.9 mg/dL (8.5-10.1); CREATININE 0.9 mg/dL (0.6-1.3); MAGNESIUM 1.7 mg/dL (1.8-2.4); TOTAL BILIRUBIN 0.3 mg/dL (<0.1-1.0); TOTAL PROTEIN 6.1 g/dL (6.4-8.2)
[2021-11-22 16:00] VITALS: BP 164/72
--- NOTE | 2021-11-22 17:45 | NUR ---
DISCHARGE TO [facility] INFORMATION GIVEN AND COPIES SENT IV AND HEART MONITOR REMOVED PERSONAL BELONGIGNS SENT ATTEMPTED MULTIPLE CALLS TO GIVE REPORT, NO ANSWER PATIENT LEFT [facility]IA [facility]
--- NOTE | 2021-11-24 14:17 | CON ---
[address] [address] CONSULTATION Name: ALMA TERRY Room: [address]#: [id number] Admission: 11/17/21 Attend Phys: Rachel Porter Discharge: 11/22/21 Date of : 34 Report #: [id number] THIS REPORT FOR: cc: Elvis Velez MD, Srinath MD Khosla,Juan Galindo MD ~ DATE OF CONSULTATION: 11/19/2021 HISTORY OF PRESENT ILLNESS: This is an 89-year-old female patient who was evaluated by me for weakness on the left side. The patient was discussed with wool puller who we are seeing the patient on the floor. I reviewed the patient's records. This patient apparently has a longstanding history of atrial fibrillation. She used to be on anticoagulation which was discontinued because the patient was having recurrent falls. She was admitted with left sided weakness. She does not know how long it is going on. One of the history indicates that she woke up with it. Other history indicate that it is going on for more than 24 hours. She says it has been going on for more than 24 hours. It has not fluctuated much. It has not become any better or worse. REVIEW OF SYSTEMS: Positive for history of atrial fibrillation, anemia, constipation and GERD, history of congestive heart failure, diverticulosis, hypertension, prior history of hysterectomy and appendectomy. She does complain of some depression. She is not complaining of any ENT symptoms at the moment. She is not nauseous. She does not complain of any symptoms in the back, throat, or hematological, dermatological, psychiatric symptom associated with present symptomatology. PAST MEDICAL HISTORY: Positive for atrial fibrillation. FAMILY HISTORY: Unremarkable. SOCIAL HISTORY: She lives in a care home and does not drink any alcohol or smoke. PHYSICAL EXAMINATION: She is alert. She is responsive. She can follow simple commands. She does not appear to have any speech difficulty. Memory is somewhat poor, but I am not sure what her baseline is. Cranial nerve examination shows a question of facial weakness on the left side, but that is not definite. She does not appear to have any hemianopsia. She is weak in the left upper and left lower extremity. Strength is estimated to be 3/5 in the left upper and left lower extremity. It looks like she can tell the position sense. Reflexes are diminished on both sides. Plantars are mute on both sides. She does not appear to be ataxic. Tone looks symmetrical. Heart looks irregular. No respiratory difficulty was noticed. She has scratches on her body. Pulses are somewhat difficult to feel, but I do not see any gross edema, [place] [address] CONSULTATION Name: ALMA TERRY Room: [address] IN [facility]#: [id number] Admission: 11/17/21 Attend Phys: Rachel Porter Discharge: 11/22/21 Date of : 34 Report #: [id number] has been one of her complaint. OBJECTIVE: VITAL SIGNS: Blood pressure is 144/90, respirations 17, pulse 89, temperature 98.3. LABORATORY DATA: White count is 11.4, platelet count is 119, potassium is only 2.5. Urinalysis showed UTI with more than [address] does not show any acute process. IMPRESSION: 1. Symptoms suggestive of stroke. 2. These symptoms can sometimes occur with encephalopathy also and we need to decide further by doing further testing. 3. Urinary tract infection, which appeared to be active and can contribute to her symptoms. 4. Hypokalemia, again that can weakness but this patient appeared to have weakness on the left side. RECOMMENDATIONS: 1. We will do the MRI in this patient to see if we can document any stroke. 2. More workup will depend upon what we find on the outcome of those testing. 3. She is having significant systemic problems and that need to be addressed and will defer that to hospitalist. 4. She is on aspirin. We will add Plavix if a stroke can be documented, even otherwise she may have to be on Plavix, if she cannot be anticoagulated. Thank you very much for this referral. <ELECTRONICALLY SIGNED> By: Juan Allen MD 11/24/21 1417 0922 [id number] Allen MD /nt
== END 2021-11-22 17:45 | DRG 64 ==
LOC: M.ERS 15:22 → M.TBA-ER 17:15 → M.2W 11-18 21:03
PROVIDERS: Family Medicine; Internal Medicine; Internal Medicine Cardiovascular Disease; ADMIT Internal Medicine; ATTEND Internal Medicine
PROC: 05HB33Z Insertion of Infusion Device into Right Basilic Vein, Percutaneous Approach (ICD-10-PCS; principal; 2021-11-19)
DX: I63.9 Cerebral infarction, unspecified (principal); G93.41 Metabolic encephalopathy; J15.6 Pneumonia due to other Gram-negative bacteria; N39.0 Urinary tract infection, site not specified; Z20.822 Contact with and (suspected) exposure to COVID-19; I11.0 Hypertensive heart disease with heart failure; I50.9 Heart failure, unspecified; K59.00 Constipation, unspecified; I48.91 Unspecified atrial fibrillation; K21.9 Gastro-esophageal reflux disease without esophagitis; E87.6 Hypokalemia; F03.90 Unspecified dementia, unspecified severity, without behavioral disturbance, psychotic disturbance, mood disturbance, and anxiety; B96.89 Other specified bacterial agents as the cause of diseases classified elsewhere; D64.9 Anemia, unspecified; Z91.041 Radiographic dye allergy status; Z90.710 Acquired absence of both cervix and uterus; Z90.49 Acquired absence of other specified parts of digestive tract